=== PATIENT | male | born 1970 | race Caucasian/White ===

== ENCOUNTER 2019-10-16 13:11 | Emergency (ER) | payer MEDICARE, MEDICAID ==
[~2019-10-16] VITALS: Ht 172 cm; Wt 95.0 kg
[2019-10-16 13:33] VITALS: BP 126/77
[2019-10-16] MEDS ORDERED: POLY10DR OP (13:35)
--- NOTE | 2019-10-16 13:39 | ED EENT ---
History of Present Illness General Chief Complaint: Eye Problems Stated Complaint: LT EYE SWELLING Source: patient, caregiver Exam Limitations: no limitations History of Present Illness Date Seen by Provider: Oct 16, 2019 Time Seen by Provider: 13:30 Initial Comments Presents with left upper eyelid swelling onset today. NO trauma or injury. NO eye pain or discharge, NO visual change. No previous occurence of similar problem. Right eye uneffected Allergies and Home Medications Home Medications Polymyxin B Sulf/Trimethoprim 10 Ml Drops, 10 ML OP Q4H Prescribed by: CATHERINE CHRISTIANSON on 10/16/19 1335 Patient Home Medication List Home Medication List Reviewed: Yes Review of Systems Review of Systems Constitutional: no symptoms reported Eyes: See HPI; Denies Blindness, Denies Drainage, Denies Decreased Acuity, Denies Foreign Body Sensation, Denies Pain, Denies Photophobia, Denies Previous Injury, Denies Shadows; Other (swelling eyelid) Ears: No Symptoms Reported Nose: no symptoms reported Mouth: no symptoms reported Throat: no symptoms reported Skin: see HPI; No change in color, No lesions, No rash Neurological: Denies Headache, Denies Numbness, Denies Paresthesia, Denies Weakness Past Mpsfvgq-Dafqfr-Vpjbcr Hx Past Med/Social Hx: Reviewed Nursing Past Med/Soc Hx Patient Social History Alcohol Use: Denies Use Recreational Drug Use: No Smoking Status: Current Everyday Smoker Type Used: Cigarettes, Smokeless Tobacco 2nd Hand Smoke Exposure: No Recent Foreign Travel: No Contact w/Someone Who Travel: No Recent Hopitalizations: No Physical Abuse: No Sexual Abuse: No Mistreated: No Fear: No Seasonal Allergies Seasonal Allergies: Yes Past Medical History Surgeries: No Respiratory: Yes Asthma Cardiac: Yes Hypertension Neurological: Yes Developmental Disorder, Seizure Disorder Genitourinary: No Gastrointestinal: Yes Gastroesophageal Reflux Musculoskeletal: No Endocrine: Yes Diabetes, Insulin dep Eye Injury Cancer: No Psychosocial: Yes Anxiety, Bipolar, Schizophrenia Integumentary: No Physical Exam Vital Signs Vital Signs - First Documented 10/16/19 13:33 Temp 36.2 Pulse 95 Resp 18 B/P (MAP) 126/77 (93) Pulse Ox 95 O2 Delivery Room Air Height, Weight, BMI Height: '" Weight: lbs. oz. kg; BMI Method: General Appearance: WD/WN, no apparent distress Eyes: bilateral eye PERRL, bilateral eye EOMI Ears: bilateral ear auricle normal, bilateral ear canal normal Nose: normal inspection Mouth/Throat: normal mouth inspection Neck: non-tender, supple; No lymphadenopathy (R), No lymphadenopathy (L) edema left upper eyelid w more fullness lateral upper lid. No apparent stye. No conjunctival injection or FB. Progress/Results/Core Measures Results/Orders Vital Signs/I&O 10/16/19 13:33 Temp 36.2 Pulse 95 Resp 18 B/P (MAP) 126/77 (93) Pulse Ox 95 O2 Delivery Room Air Departure Impression Primary Impression: Chalazion of left upper eyelid Disposition: HOME, SELF-CARE Condition: Stable Departure-Patient Inst. Decision time for Depature: 13:33 Referrals: ROGE GARCIA MD (PCP/Family) Primary Care Physician Patient Instructions: Chalazion Add. Discharge Instructions: see your PCP or Eye Doctor in 1 wk if not improving, sooner if significantly worse. All discharge instructions reviewed with patient and/or family. Voiced understanding. Scripts Polymyxin B Sulf/Trimethoprim (Polytrim Eye Drops) 10 Ml Drops 10 ML OP Q4H, #1 VIAL Prov: CATHERINE CHRISTIANSON DO 10/16/19 CATHERINE CHRISTIANSON DO Oct 16, 2019 13:39
--- OUTSIDE RECORDS SUMMARY | 2019-10-16 14:32 | XMS REPORT | Clinical Summary ---
Author Author Admin, Tenzin CABRERA Organization [facility] Address Unknown Phone Unavailable Allergies, Adverse Reactions, Alerts Allergy Name Reaction Description Start Date Severity Status Pr ovider No Known Allergies Prosper Stevens LPN Conditions or Problems Problem Name Problem Code Onset Date Status Entry Date Provider Comment Standard Description Annotate BMI 31-31.9 Active Archana Henderson APRN Body Mass Index 31.0-31.9, adult Obesity Class I (BMI 30-34.9) Active 08/26 Archana Henderson APRN Obesity, unspecified Noncompliance with dietary regimen V15.81 Active 2 Archana Henderson APRN Personal history of noncompl iance with medical treatment, presenting hazards to health Diabetes mellitus, type II with hyperglycemia 250.00 Active Archana Henderson APRN Diabetes mellitus without mention of complication, type II or unspecified type, not stated as 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 ALBUTEROL SULFATE 70701827866 Active Jazmin hagen LPN Active TRIAMCINOLONE ACETONIDE 0.1 % EXTERNAL CREAM Take/use as needed. 20 19/08/26 TRIAMCINOLONE ACETONIDE 83260824739 Active Jazmin Stevens LPN Active EQL MILK OF MAGNESIA SUSPENSION Take/use as needed. MAGNESIUM HYDROXIDE SUSP 65670037177 Active Jazmin Stevens LPN Activ e ALAVERT 10 MG ORAL TABLET DISINTEGRATING Take one by mouth daily prn LORATADINE 35597910431 Active Jazmin Stevens LPN Act raymond IBU 600 MG ORAL TABLET 1 tab three times daily as needed mild pain IBUPROFEN 08746608915 Active Jazmin Stevens LPN Active [facility] TUSSIN DM 10-100 MG/5ML ORAL LIQUID 2 tsp every 6 hrs prn co ugh DEXTROMETHORPHAN-GUAIFENESIN 13150531330 Active Jazmin Stevens LPN Active GLUCAGON EMERGENCY 1 MG INJECTION KIT as directed for severe hypoglycemia GLUCAGON (RDNA) 07240718805 Active Jazmin Stevens LPN Active [facility] EAR DROPS 6.5 % OTIC SOLUTION 5 drops both ears for wax build up prn CARBAMIDE PEROXIDE 68421653693 Active Jazmin Walter PN Active MYLANTA MAXIMUM STRENGTH SUSPENSION Take/use as needed. ALUM & MAG HYDROXIDE-SIMETH SUSP 85669539308 Active Jazmin Stevens LPN Active ACETAMINOPHEN 325 MG ORAL TABLET Take/use as needed. ACETAMINOPHEN 86714149811 Active Jazmin Stevens LPN Active THEREMS-M ORAL TABLET Take one by mouth daily MULTIPLE VITAMINS-MINERALS 10867784436 Active Jazmin Stevens LPN Ac tive QUETIAPINE FUMARATE 50 MG ORAL TABLET 2 every am and 1 tab at noon for bipolar disorder QUETIAPINE FUMARATE 61250783307 Active Siri Stevens LPN Active K-TAB 10 MEQ ORAL TABLET EXTENDED RELEASE one tab every other day 2 POTASSIUM CHLORIDE 66561846145 Active Jazmin Stevens LPN A ctive PROTONIX 40 MG ORAL TABLET DELAYED RELEASE Take one by mouth daily PANTOPRAZOLE SODIUM 88674495824 Active Jazmin Stevens LPN Active OLANZAPINE 20 MG ORAL TABLET Take one by mouth daily OLANZAPINE 47172344135 Active Jazmin Stevens LPN Active OLANZAPINE 10 MG ORAL TABLET take with 20mg tab to equal 30m g per day OLANZAPINE 75136847047 Active Jazmin Rodney WISE Active OCUVITE-LUTEIN ORAL TABLET Take one by mouth daily MULTIPLE VITAMINS-MINERALS 28710116745 Active Jazmin Casillasjayson WISE Ac tive STARLIX 120 MG ORAL TABLET three times daily before meals 7 NATEGLINIDE 67769569849 Active Jazmin Stevens LPN Active LOPRESSOR 50 MG ORAL TABLET Take one by mouth daily METOPROLOL TARTRATE 42912627875 Active Jazmin Rodney WISE Active METFORMIN HCL 1000 MG ORAL TABLET by mouth twice a day METFORMIN HCL 99304389147 Active Jazmin Rodney WISE Active LOSARTAN POTASSIUM 100 MG ORAL TABLET Take one by mouth daily 08/26 LOSARTAN POTASSIUM 21064693205 Active Jazmni Rodney WISE A ctive LITHIUM CARBONATE 300 MG ORAL CAPSULE by mouth twice a day LITHIUM CARBONATE 14035273565 Active Jazmin Stevens LPN Active FUROSEMIDE 20 MG ORAL TABLET one tab by mouth every other day 2019 FUROSEMIDE 19294770729 Active Jazmin Rodney WISE Active FLONASE SENSIMIST 27.5 MCG/SPRAY NASAL SUSPENSION two sprays ea nostril once daily FLUTICASONE FUROATE 92369905006 Active Jazmin Rodney WISE Active COLACE 100 MG ORAL CAPSULE Take one by mouth daily DOCUSATE SODIUM 84764710017 Active Jazmin Stevens LPN Active BUSPIRONE HCL 10 MG ORAL TABLET Take one by mouth 3 ti mes daily, morning, afternoon and evening BUSPIRONE HCL 71389046613 Active Jazmin Rodney WISE Active ABILIFY 20 MG ORAL TABLET Take one by mouth daily ARIPIPRAZOLE 90235678923 Active Jazmin Stevens LPN Active NORVASC 5 MG ORAL TABLET Take one by mouth daily AMLODIPINE BESYLATE 54082764489 Active Jazmin Rodney WISE Active Vital Signs Date Name Value Unit Range Description blood pressure, diastolic, repeated by physician 78 BP lind blood pressure, diastolic 78 mm[Hg] BP lind blood pressure, systolic, repeated by physician 130 BP sys blood pressure, systolic 130 mm[Hg] BP sys height E&M 68 [in_us] Bdy height pulse rate 90 /min Heart rate weight E&M 208 [lb_av] Weight Measure d Diagnostic Results Date Name Value Unit Range Description Chart Maintenance: outside lab added to flowsheet - Chemistry hemoglobin A1C, blood, as % of total hemoglobin 8.1 % blood glucose 291 mg/dL creatinine, serum 0.84 mg/dL cholesterol, serum 180 mg/dL LDL cholesterol, serum 94 mg/dL HDL cholesterol, serum 69 mg/dL triglyceride, serum, fasting 79 mg/dL Encounters Code Encounter Date Provider Facility [id number] Vst-New Level IV 17:35:56 C FRANK Henderson LOAD OUT WORKER [facility]
--- OUTSIDE RECORDS SUMMARY | 2019-10-16 14:32 | XMS REPORT | Clinical Summary ---
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 Body Mass Index 31.0-31.9, adult Obesity Class I (BMI 30-34.9) Active 08/26 Archana Beatriz 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 Obesity, unspecified Noncompliance with dietary regimen V15.81 Active 2 Archana Harrison 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 Personal history of noncompl iance with medical treatment, presenting hazards to health Diabetes mellitus, type II with hyperglycemia 250.00 Active Archana Harrison 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 Diabetes mellitus without mention of complication, type II or unspecified type, not stated as uncontrolled jail use of insulin treatment V58.67 Active 2 Archana Harrison 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 Long-term (current) use of insulin Type 2 diabetes mellitus with other specified complication 250.8 0 Active Archana Harrison 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 Diabetes mellitus with other specified manifestations, type II or unspecified type, not stated as uncontrolled Medication List Medication Instructions Start Date Stop Date Generic Name NDC Status Provider Patient Instruction NOVOLOG FLEXPEN 100 UNIT/ML SUBCUTANEOUS SOLUTION PEN- INJECTOR 5units SC with each meal, TID for diabetes INSULIN ASPART 55368869139 Act raymond Archana Harrison 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 Active SOLIQUA 100-33 UNT-MCG/ML SUBCUTANEOUS SOLUTION PEN-IN JECTOR Increase now to 26units daily and then 6-15-20 please increase to 30 units INSULIN GLARGINE-LIXISENATIDE 07359048716 Active Archana Henderson 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 Active STARLIX 120 MG ORAL TABLET three times daily before meals 7 NATEGLINIDE 16810755361 No Longer Active Archana Henderson 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 A ctive VENTOLIN HFA 108 (90 BASE) MCG/ACT INHALATION AEROSOL SOLUTION Take/use as needed. ALBUTEROL SULFATE 12220694170 Active Jazmin hagen LPN Active TRIAMCINOLONE ACETONIDE 0.1 % EXTERNAL CREAM Take/use as needed. 20 19/08/26 TRIAMCINOLONE ACETONIDE 01354253173 Active Jazmin Stevens LPN Active EQL MILK OF MAGNESIA SUSPENSION Take/use as needed. MAGNESIUM HYDROXIDE SUSP 70366925901 Active Jazmin Stevens LPN Activ e ALAVERT 10 MG ORAL TABLET DISINTEGRATING Take one by mouth daily prn LORATADINE 59695191708 Active Jazmin Stevens LPN Act raymond IBU 600 MG ORAL TABLET 1 tab three times daily as needed mild pain IBUPROFEN 33232546629 Active Jazmin Stevens LPN Active [facility] TUSSIN DM 10-100 MG/5ML ORAL LIQUID 2 tsp every 6 hrs prn co ugh DEXTROMETHORPHAN-GUAIFENESIN 27992268040 Active Jazmin Stevens LPN Active GLUCAGON EMERGENCY 1 MG INJECTION KIT as directed for severe hypoglycemia GLUCAGON (RDNA) 22972833035 Active Jazmin Stevens LPN Active [facility] EAR DROPS 6.5 % OTIC SOLUTION 5 drops both ears for wax build up prn CARBAMIDE PEROXIDE 37565400873 Active Jazmin Walter PN Active MYLANTA MAXIMUM STRENGTH SUSPENSION Take/use as needed. ALUM & MAG HYDROXIDE-SIMETH SUSP 82198398582 Active Jazmin Stevens LPN Active ACETAMINOPHEN 325 MG ORAL TABLET Take/use as needed. ACETAMINOPHEN 09458559126 Active Jazmin Stevens LPN Active THEREMS-M ORAL TABLET Take one by mouth daily MULTIPLE VITAMINS-MINERALS 73320208594 Active Jazmin Stevens LPN Ac tive QUETIAPINE FUMARATE 50 MG ORAL TABLET 2 every am and 1 tab at noon for bipolar disorder QUETIAPINE FUMARATE 44426695123 Active Siri ryjanell Stevens LPN Active K-TAB 10 MEQ ORAL TABLET EXTENDED RELEASE one tab every other day 2 POTASSIUM CHLORIDE 87750928816 Active Jazmin Stevens LPN A ctive PROTONIX 40 MG ORAL TABLET DELAYED RELEASE Take one by mouth daily PANTOPRAZOLE SODIUM 39967004583 Active Jazmin Stevens LPN Active OLANZAPINE 20 MG ORAL TABLET Take one by mouth daily OLANZAPINE 29950346979 Active Jazmin Stevens LPN Active OLANZAPINE 10 MG ORAL TABLET take with 20mg tab to equal 30m g per day OLANZAPINE 26911304430 Active Jazmin Stevens LPN Active OCUVITE-LUTEIN ORAL TABLET Take one by mouth daily MULTIPLE VITAMINS-MINERALS 25686263797 Active Jazmin Stevens LPN Ac tive LOPRESSOR 50 MG ORAL TABLET Take one by mouth daily METOPROLOL TARTRATE 68625208404 Active Jazmin Stevens LPN Active METFORMIN HCL 1000 MG ORAL TABLET by mouth twice a day METFORMIN HCL 06790622776 Active Jazmin Stevens LPN Active LOSARTAN POTASSIUM 100 MG ORAL TABLET Take one by mouth daily 08/26 LOSARTAN POTASSIUM 48809997499 Active Jazmin Stevens LPN A ctive LITHIUM CARBONATE 300 MG ORAL CAPSULE by mouth twice a day LITHIUM CARBONATE 96348601680 Active Jazmin Stevens LPN Active FUROSEMIDE 20 MG ORAL TABLET one tab by mouth every other day 2019 FUROSEMIDE 20504774992 Active Jazmin Stevens LPN Active FLONASE SENSIMIST 27.5 MCG/SPRAY NASAL SUSPENSION two sprays ea nostril once daily FLUTICASONE FUROATE 89117706820 Active Jazmin Stevens LPN Active COLACE 100 MG ORAL CAPSULE Take one by mouth daily DOCUSATE SODIUM 69013433005 Active Jazmin Stevens LPN Active BUSPIRONE HCL 10 MG ORAL TABLET Take one by mouth 3 ti mes daily, morning, afternoon and evening BUSPIRONE HCL 98551939551 Active Jazmin Stevens LPN Active ABILIFY 20 MG ORAL TABLET Take one by mouth daily ARIPIPRAZOLE 26732625929 Active Jazmin Stevens LPN Active NORVASC 5 MG ORAL TABLET Take one by mouth daily AMLODIPINE BESYLATE 31022673322 Active Jazmin Stevens LPN Active STARLIX 120 MG ORAL TABLET three times daily before meals 7 STARLIX 120 MG ORAL TABLET 746660 NATEGLINIDE Inactive Vital Signs Date Name Value Unit Range Description blood pressure, diastolic, repeated by physician 78 BP lind blood pressure, diastolic 78 mm[Hg] BP lind blood pressure, systolic, repeated by physician 138 BP sys blood pressure, systolic 138 mm[Hg] BP sys height E&M 68 [in_us] Bdy height pulse rate 100 /min Heart rate weight E&M 210 [lb_av] Weight Measure d blood pressure, diastolic, repeated by physician 78 [...] mg/dL Encounters Code Encounter Date Provider Facility [id number]-[id number] Vst-Est Level V 23:31:00 CD T Archana Henderson [facility] [id number] Vst-New Level IV 17:35:56 C FRANK Henderson [facility]
--- OUTSIDE RECORDS SUMMARY | 2019-10-16 14:32 | XMS REPORT | Clinical Summary ---
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 Problem Name Problem Code Onset Date Status Entry Date Provider Comment Standard Description Annotate BMI 31-31.9 Refinement Archana [place] A PRN Body Mass Index 31.0-31.9, adult BMI 32-32.9 Active Archana [place] MUSIC INTERN Body Mass Index 31.0-31.9, adult Obesity Class I (BMI 30-34.9) Active 08/26 Archana Beatriz MUSIC INTERN Obesity, unspecified Noncompliance with dietary regimen V15.81 Active 2 Archana [place] MUSIC INTERN Personal history of noncompl iance with medical treatment, presenting hazards to health Diabetes mellitus, type II with hyperglycemia 250.00 Active Archana [place] MUSIC INTERN Diabetes mellitus without mention of complication, type II or unspecified type, not stated as uncontrolled prison use of insulin treatment V58.67 Active 2 Archana [place] MUSIC INTERN Long-term (current) use of insulin Type 2 diabetes mellitus with other specified complication 250.8 0 Active Archana [place] MUSIC INTERN Diabetes mellitus with other specified manifestations, type II or unspecified type, not stated as uncontrolled Medication List Medication Instructions Start Date Stop Date Generic Name NDC Status Provider Patient Instruction NOVOLOG FLEXPEN 100 UNIT/ML SUBCUTANEOUS SOLUTION PEN- INJECTOR 5units SC with each meal, TID for diabetes INSULIN ASPART 49365318434 Act raymond Archana [place] MUSIC INTERN Active SOLIQUA 100-33 UNT-MCG/ML SUBCUTANEOUS SOLUTION PEN-IN JECTOR Increase now to 26units daily and then 6-15-20 please increase to 30 units INSULIN GLARGINE-LIXISENATIDE 57229224355 Active Archana Henderson MUSIC INTERN Active STARLIX 120 MG ORAL TABLET three times daily before meals 7 NATEGLINIDE 06159172644 No Longer Active Archana Henderson MUSIC INTERN A ctive VENTOLIN HFA 108 (90 BASE) MCG/ACT INHALATION AEROSOL SOLUTION Take/use as needed. ALBUTEROL SULFATE 87781492861 Active Jazmin hagen LPN Active TRIAMCINOLONE ACETONIDE 0.1 % EXTERNAL CREAM Take/use as needed. 20 19/08/26 TRIAMCINOLONE ACETONIDE 24206188577 Active Jazmin Stevens LPN Active EQL MILK OF MAGNESIA SUSPENSION Take/use as needed. MAGNESIUM HYDROXIDE SUSP 06445502505 Active Jazmin Stevens LPN Activ e ALAVERT 10 MG ORAL TABLET DISINTEGRATING Take one by mouth daily prn LORATADINE 57252098498 Active Jazmin Stevens LPN Act raymond IBU 600 MG ORAL TABLET 1 tab three times daily as needed mild pain IBUPROFEN 95212840292 Active Jazmin Stevens LPN Active [facility] TUSSIN DM 10-100 MG/5ML ORAL LIQUID 2 tsp every 6 hrs prn co ugh DEXTROMETHORPHAN-GUAIFENESIN 25249442443 Active Jazmin Stevens LPN Active GLUCAGON EMERGENCY 1 MG INJECTION KIT as directed for severe hypoglycemia GLUCAGON (RDNA) 35349073313 Active Jazmin Stevens LPN Active [facility] EAR DROPS 6.5 % OTIC SOLUTION 5 drops both ears for wax build up prn CARBAMIDE PEROXIDE 86132068141 Active Jazmin Walter PN Active MYLANTA MAXIMUM STRENGTH SUSPENSION Take/use as needed. ALUM & MAG HYDROXIDE-SIMETH SUSP 87816022880 Active Jazmin Stevens LPN Active ACETAMINOPHEN 325 MG ORAL TABLET Take/use as needed. ACETAMINOPHEN 22215186438 Active Jazmin Stevens LPN Active THEREMS-M ORAL TABLET Take one by mouth daily MULTIPLE VITAMINS-MINERALS 64862360094 Active Jazmin Stevens LPN Ac tive QUETIAPINE FUMARATE 50 MG ORAL TABLET 2 every am and 1 tab at noon for bipolar disorder QUETIAPINE FUMARATE 78727258729 Active Siri ryjanell Stevens LPN Active K-TAB 10 MEQ ORAL TABLET EXTENDED RELEASE one tab every other day 2 POTASSIUM CHLORIDE 25226647083 Active Jazmin Stevens LPN A ctive PROTONIX 40 MG ORAL TABLET DELAYED RELEASE Take one by mouth daily PANTOPRAZOLE SODIUM 72507332841 Active Jazmin Stevens LPN Active OLANZAPINE 20 MG ORAL TABLET Take one by mouth daily OLANZAPINE 19730882389 Active Jazmin Stevens LPN Active OLANZAPINE 10 MG ORAL TABLET take with 20mg tab to equal 30m g per day OLANZAPINE 29243576864 Active Jazmin Stevens LPN Active OCUVITE-LUTEIN ORAL TABLET Take one by mouth daily MULTIPLE VITAMINS-MINERALS 28329754440 Active Jazmin Stevens LPN Ac tive LOPRESSOR 50 MG ORAL TABLET Take one by mouth daily METOPROLOL TARTRATE 10917112235 Active Jazmin Stevens LPN Active METFORMIN HCL 1000 MG ORAL TABLET by mouth twice a day METFORMIN HCL 50287765363 Active Jazmin Stevens LPN Active LOSARTAN POTASSIUM 100 MG ORAL TABLET Take one by mouth daily 08/26 LOSARTAN POTASSIUM 10821344053 Active Jazmin Stevens LPN A ctive LITHIUM CARBONATE 300 MG ORAL CAPSULE by mouth twice a day LITHIUM CARBONATE 27768844724 Active Jazmin Stevens LPN Active FUROSEMIDE 20 MG ORAL TABLET one tab by mouth every other day 2019 FUROSEMIDE 12188675223 Active Jazmin Stevens LPN Active FLONASE SENSIMIST 27.5 MCG/SPRAY NASAL SUSPENSION two sprays ea nostril once daily FLUTICASONE FUROATE 82667017138 Active Jazmin Stevens LPN Active COLACE 100 MG ORAL CAPSULE Take one by mouth daily DOCUSATE SODIUM 79566366607 Active Jazmin Stevens LPN Active BUSPIRONE HCL 10 MG ORAL TABLET Take one by mouth 3 ti mes daily, morning, afternoon and evening BUSPIRONE HCL 53781093856 Active Jazmin Stevens LPN Active ABILIFY 20 MG ORAL TABLET Take one by mouth daily ARIPIPRAZOLE 98312109084 Active Jazmin Stevens LPN Active NORVASC 5 MG ORAL TABLET Take one by mouth daily AMLODIPINE BESYLATE 66239401758 Active Jazmin Stevens LPN Active STARLIX 120 MG ORAL TABLET three times daily before meals 7 STARLIX 120 MG ORAL TABLET 521821 NATEGLINIDE Inactive Vital Signs Date Name Value [...] mg/dL Encounters Code Encounter Date Provider Facility CPT-[id number] Vst-Est Level V 23:31:00 CD T Archana Henderson [facility] [id number] Vst-New Level IV 17:35:56 C FRANK Henderson [facility]
--- OUTSIDE RECORDS SUMMARY | 2019-10-16 14:32 | XMS REPORT | Clinical Summary ---
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 Conditions or Problems Problem Name Problem Code Onset Date Status Entry Date Provider Comment Standard Description Annotate BMI 31-31.9 Refinement Archana [place] A PRN Body Mass Index 31.0-31.9, adult BMI 32-32.9 Active Archana [place] PEDIATRIC NURSE PRACTITIONER Body Mass Index 31.0-31.9, adult Obesity Class I (BMI 30-34.9) Active 08/26 Archana Beatriz PEDIATRIC NURSE PRACTITIONER Obesity, unspecified Noncompliance with dietary regimen V15.81 Active 2 Archana [place] PEDIATRIC NURSE PRACTITIONER Personal history of noncompl iance with medical treatment, presenting hazards to health Diabetes mellitus, type II with hyperglycemia 250.00 Active Archana [place] PEDIATRIC NURSE PRACTITIONER Diabetes mellitus without mention of complication, type II or unspecified type, not stated as uncontrolled nursing home use of insulin treatment V58.67 Active 2 Archana [place] PEDIATRIC NURSE PRACTITIONER Long-term (current) use of insulin Type 2 diabetes mellitus with other specified complication 250.8 0 Active Archana [place] PEDIATRIC NURSE PRACTITIONER Diabetes mellitus with other specified manifestations, type II or unspecified type, not stated as uncontrolled Medication List Medication Instructions Start Date Stop Date Generic Name NDC Status Provider Patient Instruction NOVOLOG FLEXPEN 100 UNIT/ML SUBCUTANEOUS SOLUTION PEN- INJECTOR 5units SC with each meal, TID for diabetes INSULIN ASPART [id number] Act raymond Archana [place] PEDIATRIC NURSE PRACTITIONER Active SOLIQUA 100-33 UNT-MCG/ML SUBCUTANEOUS SOLUTION PEN-IN JECTOR Increase now to 26units daily and then 6-15-20 please increase to 30 units INSULIN GLARGINE-LIXISENATIDE 46862051924 Active Archana Henderson PEDIATRIC NURSE PRACTITIONER Active STARLIX 120 MG ORAL TABLET three times daily before meals 7 NATEGLINIDE 09351423576 No Longer Active Archana Henderson PEDIATRIC NURSE PRACTITIONER A ctive VENTOLIN HFA 108 (90 BASE) MCG/ACT INHALATION AEROSOL SOLUTION Take/use as needed. ALBUTEROL SULFATE 00409844091 Active Jazmin hagen LPN Active TRIAMCINOLONE ACETONIDE 0.1 % EXTERNAL CREAM Take/use as needed. 20 19/08/26 TRIAMCINOLONE ACETONIDE 97012093685 Active Jazmin Stevens LPN Active EQL MILK OF MAGNESIA SUSPENSION Take/use as needed. MAGNESIUM HYDROXIDE SUSP 33107109104 Active Jazmin Stevens LPN Activ e ALAVERT 10 MG ORAL TABLET DISINTEGRATING Take one by mouth daily prn LORATADINE 09564592502 Active Jazmin Stevens LPN Act raymond IBU 600 MG ORAL TABLET 1 tab three times daily as needed mild pain IBUPROFEN 76564675642 Active Jazmin Stevens LPN Active [facility] TUSSIN DM 10-100 MG/5ML ORAL LIQUID 2 tsp every 6 hrs prn co ugh DEXTROMETHORPHAN-GUAIFENESIN 25521608274 Active Jazmin Stevens LPN Active GLUCAGON EMERGENCY 1 MG INJECTION KIT as directed for severe hypoglycemia GLUCAGON (RDNA) 61635136842 Active Jazmin Stevens LPN Active [facility] EAR DROPS 6.5 % OTIC SOLUTION 5 drops both ears for wax build up prn CARBAMIDE PEROXIDE 06493475766 Active Jazmin Walter PN Active MYLANTA MAXIMUM STRENGTH SUSPENSION Take/use as needed. ALUM & MAG HYDROXIDE-SIMETH SUSP 19311700645 Active Jazmin Stevens LPN Active ACETAMINOPHEN 325 MG ORAL TABLET Take/use as needed. ACETAMINOPHEN 88881080569 Active Jazmin Stevens LPN Active THEREMS-M ORAL TABLET Take one by mouth daily MULTIPLE VITAMINS-MINERALS 27562335946 Active Jazmin Stevens LPN Ac tive QUETIAPINE FUMARATE 50 MG ORAL TABLET 2 every am and 1 tab at noon for bipolar disorder QUETIAPINE FUMARATE 29922622773 Active Siri ryjanell Stevens LPN Active K-TAB 10 MEQ ORAL TABLET EXTENDED RELEASE one tab every other day 2 POTASSIUM CHLORIDE 89786497188 Active Jazmin Stevens LPN A ctive PROTONIX 40 MG ORAL TABLET DELAYED RELEASE Take one by mouth daily PANTOPRAZOLE SODIUM 08214480309 Active Jazmin Stevens LPN Active OLANZAPINE 20 MG ORAL TABLET Take one by mouth daily OLANZAPINE 90884807253 Active Jazmin Stevens LPN Active OLANZAPINE 10 MG ORAL TABLET take with 20mg tab to equal 30m g per day OLANZAPINE 76872339920 Active Jazmin Stevens LPN Active OCUVITE-LUTEIN ORAL TABLET Take one by mouth daily MULTIPLE VITAMINS-MINERALS 82669410089 Active Jazmin Stevens LPN Ac tive LOPRESSOR 50 MG ORAL TABLET Take one by mouth daily METOPROLOL TARTRATE 64348999895 Active Jazmin Stevens LPN Active METFORMIN HCL 1000 MG ORAL TABLET by mouth twice a day METFORMIN HCL 18259069391 Active Jazmin Stevens LPN Active LOSARTAN POTASSIUM 100 MG ORAL TABLET Take one by mouth daily 08/26 [place] POTASSIUM 59528763501 Active Jazmin Stevens LPN A ctive LITHIUM CARBONATE 300 MG ORAL CAPSULE by mouth twice a day LITHIUM CARBONATE 23065019289 Active Jazmin Stevens LPN Active FUROSEMIDE 20 MG ORAL TABLET one tab by mouth every other day 2019 FUROSEMIDE 99595256079 Active Jazmin Stevens LPN Active FLONASE SENSIMIST 27.5 MCG/SPRAY NASAL SUSPENSION two sprays ea nostril once daily FLUTICASONE FUROATE 34664100348 Active Jazmin Stevens LPN Active COLACE 100 MG ORAL CAPSULE Take one by mouth daily DOCUSATE SODIUM 82069287218 Active Jazmin Stevens LPN Active BUSPIRONE HCL 10 MG ORAL TABLET Take one by mouth 3 ti mes daily, morning, afternoon and evening BUSPIRONE HCL 99901325158 Active Jazmin Stevens LPN Active ABILIFY 20 MG ORAL TABLET Take one by mouth daily ARIPIPRAZOLE 97039712414 Active Jazmin Stevens LPN Active NORVASC 5 MG ORAL TABLET Take one by mouth daily AMLODIPINE BESYLATE 55282158726 Active Jazmin Stevens LPN Active STARLIX 120 MG ORAL TABLET three times daily before meals 7 STARLIX 120 MG ORAL TABLET 797111 NATEGLINIDE Inactive Vital Signs Date Name Value [...] mg/dL Encounters Code Encounter Date Provider Facility [id number]-[id number] Vst-Est Level V 23:31:00 CD T Archana Henderson [facility]-[id number] [id number]-Kfv Vst-New Level IV 17:35:56 C FRANK Henderson [facility]
--- OUTSIDE RECORDS SUMMARY | 2019-10-16 14:32 | XMS REPORT | Clinical Summary ---
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 INSULIN GLARGINE -LIXISENATIDE 84097564632 Active Archana Henderson MARKETING BUDGET ANALYST Active VENTOLIN HFA 108 (90 BASE) MCG/ACT INHALATION AEROSOL SOLUTION Take/use as needed. ALBUTEROL SULFATE 46271908126 Active Jazmin hagen LPN Active TRIAMCINOLONE ACETONIDE 0.1 % EXTERNAL CREAM Take/use as needed. 20 19/08/26 TRIAMCINOLONE ACETONIDE 97222479976 Active Jazmin Stevens LPN Active EQL MILK OF MAGNESIA SUSPENSION Take/use as needed. MAGNESIUM HYDROXIDE SUSP 24378339526 Active Jazmin Stevens LPN Activ e ALAVERT 10 MG ORAL TABLET DISINTEGRATING Take one by mouth daily prn LORATADINE 25819485791 Active Jazmin Stevens LPN Act raymond IBU 600 MG ORAL TABLET 1 tab three times daily as needed mild pain IBUPROFEN 37772558269 Active Jazmin Stevens LPN Active [facility] TUSSIN DM 10-100 MG/5ML ORAL LIQUID 2 tsp every 6 hrs prn co ugh DEXTROMETHORPHAN-GUAIFENESIN 14635755281 Active Jazmin Stevens LPN Active GLUCAGON EMERGENCY 1 MG INJECTION KIT as directed for severe hypoglycemia GLUCAGON (RDNA) 52349232854 Active Jazmin Stevens LPN Active [facility] EAR DROPS 6.5 % OTIC SOLUTION 5 drops both ears for wax build up prn CARBAMIDE PEROXIDE 99549277091 Active Jazmin Walter PN Active MYLANTA MAXIMUM STRENGTH SUSPENSION Take/use as needed. ALUM & MAG HYDROXIDE-SIMETH SUSP 38403397384 Active Jazmin Stevens LPN Active ACETAMINOPHEN 325 MG ORAL TABLET Take/use as needed. ACETAMINOPHEN 27860729381 Active Jazmin Stevens LPN Active THEREMS-M ORAL TABLET Take one by mouth daily MULTIPLE VITAMINS-MINERALS 40591210450 Active Jazmin Stevens LPN Ac tive QUETIAPINE FUMARATE 50 MG ORAL TABLET 2 every am and 1 tab at noon for bipolar disorder QUETIAPINE FUMARATE 90662092368 Active Siri Stevens LPN Active K-TAB 10 MEQ ORAL TABLET EXTENDED RELEASE one tab every other day 2 POTASSIUM CHLORIDE 88063589378 Active Jazmin Stevens LPN A ctive PROTONIX 40 MG ORAL TABLET DELAYED RELEASE Take one by mouth daily PANTOPRAZOLE SODIUM 10832328142 Active Jazmin Stevens LPN Active OLANZAPINE 20 MG ORAL TABLET Take one by mouth daily OLANZAPINE 19440661435 Active Jazmin Stevens LPN Active OLANZAPINE 10 MG ORAL TABLET take with 20mg tab to equal 30m g per day OLANZAPINE 16569322262 Active Jazmin Rodney WISE Active OCUVITE-LUTEIN ORAL TABLET Take one by mouth daily MULTIPLE VITAMINS-MINERALS 74808710255 Active Jazmin [place] WISE Ac tive STARLIX 120 MG ORAL TABLET three times daily before meals 7 NATEGLINIDE 55732053843 Active Jazmin Stevens LPN Active LOPRESSOR 50 MG ORAL TABLET Take one by mouth daily METOPROLOL TARTRATE 58332254151 Active Jazmin Rodney WISE Active METFORMIN HCL 1000 MG ORAL TABLET by mouth twice a day METFORMIN HCL 64649278580 Active Jazmin Rodney WISE Active LOSARTAN POTASSIUM 100 MG ORAL TABLET Take one by mouth daily 08/26 [place] POTASSIUM 04405685763 Active Jazmin Rodney WISE A ctive LITHIUM CARBONATE 300 MG ORAL CAPSULE by mouth twice a day LITHIUM CARBONATE 73903021474 Active Jazmin Stevens LPN Active FUROSEMIDE 20 MG ORAL TABLET one tab by mouth every other day 2019 FUROSEMIDE 48924046870 Active Jazmin Rodney WISE Active FLONASE SENSIMIST 27.5 MCG/SPRAY NASAL SUSPENSION two sprays ea nostril once daily FLUTICASONE FUROATE 36660869924 Active Jazmin Rodney WISE Active COLACE 100 MG ORAL CAPSULE Take one by mouth daily DOCUSATE SODIUM 30106167776 Active Jazmin Stevens LPN Active BUSPIRONE HCL 10 MG ORAL TABLET Take one by mouth 3 ti mes daily, morning, afternoon and evening BUSPIRONE HCL 55696331262 Active Jazmin Rodney WISE Active ABILIFY 20 MG ORAL TABLET Take one by mouth daily ARIPIPRAZOLE 65279339535 Active Jazmin Stevens LPN Active NORVASC 5 MG ORAL TABLET Take one by mouth daily AMLODIPINE BESYLATE 83266517036 Active Jazmin Rodney WISE Active Vital Signs [...] mg/dL Encounters Code Encounter Date Provider Facility CPT-[id number] [id number] Vst-New Level IV 17:35:56 C FRANK Henderson MARKETING BUDGET ANALYST [facility]
--- OUTSIDE RECORDS SUMMARY | 2019-10-16 14:32 | XMS REPORT | Clinical Summary ---
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 Body Mass Index 31.0-31.9, adult Obesity Class I (BMI 30-34.9) Active 08/26 Archana Beatriz GLASS SCIENCE ENGINEER Obesity, unspecified Noncompliance with dietary regimen V15.81 Active 2 Archana [place] GLASS SCIENCE ENGINEER Personal history of noncompl iance with medical treatment, presenting hazards to health Diabetes mellitus, type II with hyperglycemia 250.00 Active Archana [place] GLASS SCIENCE ENGINEER Diabetes mellitus without mention of complication, type II or unspecified type, not stated as uncontrolled [facility] use of insulin treatment V58.67 Active 2 Archana [place] GLASS SCIENCE ENGINEER Long-term (current) use of insulin Type 2 diabetes mellitus with other specified complication 250.8 0 Active Archana [place] GLASS SCIENCE ENGINEER Diabetes mellitus with other specified manifestations, type II or unspecified type, not stated as uncontrolled Medication List Medication Instructions Start Date Stop Date Generic Name NDC Status Provider Patient Instruction NOVOLOG FLEXPEN 100 UNIT/ML SUBCUTANEOUS SOLUTION PEN- INJECTOR 5units SC with each meal, TID for diabetes INSULIN ASPART 81441035187 Act raymond Archana [place] GLASS SCIENCE ENGINEER Active SOLIQUA 100-33 UNT-MCG/ML SUBCUTANEOUS SOLUTION PEN-IN JECTOR Increase now to 26units daily and then 6-15-20 please increase to 30 units INSULIN GLARGINE-LIXISENATIDE 43241315362 Active Archana Henderson GLASS SCIENCE ENGINEER Active STARLIX 120 MG ORAL TABLET three times daily before meals 7 NATEGLINIDE 60460037613 No Longer Active Archana Henderson GLASS SCIENCE ENGINEER A ctive VENTOLIN HFA 108 (90 BASE) MCG/ACT INHALATION AEROSOL SOLUTION Take/use as needed. ALBUTEROL SULFATE 43993457976 Active Jazmin hagen LPN Active TRIAMCINOLONE ACETONIDE 0.1 % EXTERNAL CREAM Take/use as needed. 20 19/08/26 TRIAMCINOLONE ACETONIDE 02517590872 Active Jazmin Stevens LPN Active EQL MILK OF MAGNESIA SUSPENSION Take/use as needed. MAGNESIUM HYDROXIDE SUSP 24788617983 Active Jazmin Stevens LPN Activ e ALAVERT 10 MG ORAL TABLET DISINTEGRATING Take one by mouth daily prn LORATADINE 69415634169 Active Jazmin Stevens LPN Act raymond IBU 600 MG ORAL TABLET 1 tab three times daily as needed mild pain IBUPROFEN 99677397860 Active Jazmin Stevens LPN Active [facility] TUSSIN DM 10-100 MG/5ML ORAL LIQUID 2 tsp every 6 hrs prn co ugh DEXTROMETHORPHAN-GUAIFENESIN 41856262206 Active Jazmin Stevens LPN Active GLUCAGON EMERGENCY 1 MG INJECTION KIT as directed for severe hypoglycemia GLUCAGON (RDNA) 75061915621 Active Jazmin Stevens LPN Active [facility] EAR DROPS 6.5 % OTIC SOLUTION 5 drops both ears for wax build up prn CARBAMIDE PEROXIDE 85247619597 Active Jazmin Walter PN Active MYLANTA MAXIMUM STRENGTH SUSPENSION Take/use as needed. ALUM & MAG HYDROXIDE-SIMETH SUSP 66373171026 Active Jazmin Stevens LPN Active ACETAMINOPHEN 325 MG ORAL TABLET Take/use as needed. ACETAMINOPHEN 48087974526 Active Jazmin Stevens LPN Active THEREMS-M ORAL TABLET Take one by mouth daily MULTIPLE VITAMINS-MINERALS 41858841299 Active Jazmin Stevens LPN Ac tive QUETIAPINE FUMARATE 50 MG ORAL TABLET 2 every am and 1 tab at noon for bipolar disorder QUETIAPINE FUMARATE 83291971004 Active Siri ryjanell Stevens LPN Active K-TAB 10 MEQ ORAL TABLET EXTENDED RELEASE one tab every other day 2 POTASSIUM CHLORIDE 82938134904 Active Jazmin Stevens LPN A ctive PROTONIX 40 MG ORAL TABLET DELAYED RELEASE Take one by mouth daily PANTOPRAZOLE SODIUM 48739394776 Active Jazmin Stevens LPN Active OLANZAPINE 20 MG ORAL TABLET Take one by mouth daily OLANZAPINE 72050649211 Active Jazmin Stevens LPN Active OLANZAPINE 10 MG ORAL TABLET take with 20mg tab to equal 30m g per day OLANZAPINE 12670683497 Active Jazmin Stevens LPN Active OCUVITE-LUTEIN ORAL TABLET Take one by mouth daily MULTIPLE VITAMINS-MINERALS 86181442020 Active Jazmin Stevens LPN Ac tive LOPRESSOR 50 MG ORAL TABLET Take one by mouth daily METOPROLOL TARTRATE 22530921928 Active Jazmin Stevens LPN Active METFORMIN HCL 1000 MG ORAL TABLET by mouth twice a day METFORMIN HCL 36695597319 Active Jazmin Stevens LPN Active LOSARTAN POTASSIUM 100 MG ORAL TABLET Take one by mouth daily 08/26 [place] POTASSIUM 74198694237 Active Jazmin Stevens LPN A ctive LITHIUM CARBONATE 300 MG ORAL CAPSULE by mouth twice a day LITHIUM CARBONATE 97858798568 Active Jazmin Stevens LPN Active FUROSEMIDE 20 MG ORAL TABLET one tab by mouth every other day 2019 FUROSEMIDE 10308658602 Active Jazmin Stevens LPN Active FLONASE SENSIMIST 27.5 MCG/SPRAY NASAL SUSPENSION two sprays ea nostril once daily FLUTICASONE FUROATE 63292479222 Active Jazmin Stevens LPN Active COLACE 100 MG ORAL CAPSULE Take one by mouth daily DOCUSATE SODIUM 72451127130 Active Jazmin Stevens LPN Active BUSPIRONE HCL 10 MG ORAL TABLET Take one by mouth 3 ti mes daily, morning, afternoon and evening BUSPIRONE HCL 54023482982 Active Jazmin Stevens LPN Active ABILIFY 20 MG ORAL TABLET Take one by mouth daily ARIPIPRAZOLE 24665369322 Active Jazmin Stevens LPN Active NORVASC 5 MG ORAL TABLET Take one by mouth daily AMLODIPINE BESYLATE 45868807973 Active Jazmin Stevens LPN Active STARLIX 120 MG ORAL TABLET three times daily before meals 7 STARLIX 120 MG ORAL TABLET 027012 NATEGLINIDE Inactive Vital Signs Date Name Value [...] mg/dL Encounters Code Encounter Date Provider Facility CPT-50219 [id number] Vst-Est Level V 23:31:00 CD T Archana [facility] [id number] Vst-New Level IV 17:35:56 C FRANK Henderson [facility]
--- OUTSIDE RECORDS SUMMARY | 2019-10-16 14:32 | XMS REPORT | Clinical Summary ---
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 Body Mass Index 31.0-31.9, adult Obesity Class I (BMI 30-34.9) Active 08/26 Archana Beatriz CNC GRINDER Obesity, unspecified Noncompliance with dietary regimen V15.81 Active 2 Archana [place] CNC GRINDER Personal history of noncompl iance with medical treatment, presenting hazards to health Diabetes mellitus, type II with hyperglycemia 250.00 Active Archana [place] CNC GRINDER Diabetes mellitus without mention of complication, type II or unspecified type, not stated as uncontrolled [facility] use of insulin treatment V58.67 Active 2 Archana [place] CNC GRINDER Long-term (current) use of insulin Type 2 diabetes mellitus with other specified complication 250.8 0 Active Archana [place] CNC GRINDER Diabetes mellitus with other specified manifestations, type II or unspecified type, not stated as uncontrolled Medication List Medication Instructions Start Date Stop Date Generic Name NDC Status Provider Patient Instruction NOVOLOG FLEXPEN 100 UNIT/ML SUBCUTANEOUS SOLUTION PEN- INJECTOR 5units SC with each meal, TID for diabetes INSULIN ASPART 47440893478 Act raymond Archana [place] CNC GRINDER Active SOLIQUA 100-33 UNT-MCG/ML SUBCUTANEOUS SOLUTION PEN-IN JECTOR Increase now to 26units daily and then 6-15-20 please increase to 30 units INSULIN GLARGINE-LIXISENATIDE 41490589114 Active Archana Henderson CNC GRINDER Active STARLIX 120 MG ORAL TABLET three times daily before meals 7 NATEGLINIDE 72716492965 No Longer Active Archana Henderson CNC GRINDER A ctive VENTOLIN HFA 108 (90 BASE) MCG/ACT INHALATION AEROSOL SOLUTION Take/use as needed. ALBUTEROL SULFATE 49317343737 Active Jazmin hagen LPN Active TRIAMCINOLONE ACETONIDE 0.1 % EXTERNAL CREAM Take/use as needed. 20 19/08/26 TRIAMCINOLONE ACETONIDE 20210794436 Active Jzamin Stevens LPN Active EQL MILK OF MAGNESIA SUSPENSION Take/use as needed. MAGNESIUM HYDROXIDE SUSP 86179131966 Active Jazmin Stevens LPN Activ e ALAVERT 10 MG ORAL TABLET DISINTEGRATING Take one by mouth daily prn LORATADINE 07658508899 Active Jazmin Stevens LPN Act raymond IBU 600 MG ORAL TABLET 1 tab three times daily as needed mild pain IBUPROFEN 47951893618 Active Jazmin Stevens LPN Active [facility] TUSSIN DM 10-100 MG/5ML ORAL LIQUID 2 tsp every 6 hrs prn co ugh DEXTROMETHORPHAN-GUAIFENESIN 82888652272 Active Jazmin Stevens LPN Active GLUCAGON EMERGENCY 1 MG INJECTION KIT as directed for severe hypoglycemia GLUCAGON (RDNA) 67801915648 Active Jazmin Stevens LPN Active [facility] EAR DROPS 6.5 % OTIC SOLUTION 5 drops both ears for wax build up prn CARBAMIDE PEROXIDE 81411117999 Active Jazmin Walter PN Active MYLANTA MAXIMUM STRENGTH SUSPENSION Take/use as needed. ALUM & MAG HYDROXIDE-SIMETH SUSP 62375889199 Active Jazmin Stevens LPN Active ACETAMINOPHEN 325 MG ORAL TABLET Take/use as needed. ACETAMINOPHEN 57023678299 Active Jazmin Stevens LPN Active THEREMS-M ORAL TABLET Take one by mouth daily MULTIPLE VITAMINS-MINERALS 41583953143 Active Jazmin Stevens LPN Ac tive QUETIAPINE FUMARATE 50 MG ORAL TABLET 2 every am and 1 tab at noon for bipolar disorder QUETIAPINE FUMARATE 69679402174 Active Siri ryjanell Stevens LPN Active K-TAB 10 MEQ ORAL TABLET EXTENDED RELEASE one tab every other day 2 POTASSIUM CHLORIDE 06634003705 Active Jazmin Stevens LPN A ctive PROTONIX 40 MG ORAL TABLET DELAYED RELEASE Take one by mouth daily PANTOPRAZOLE SODIUM 91124726254 Active Jazmni Stevens LPN Active OLANZAPINE 20 MG ORAL TABLET Take one by mouth daily OLANZAPINE 53538768176 Active Jazmin Stevens LPN Active OLANZAPINE 10 MG ORAL TABLET take with 20mg tab to equal 30m g per day OLANZAPINE 66544666928 Active Jazmin Stevens LPN Active OCUVITE-LUTEIN ORAL TABLET Take one by mouth daily MULTIPLE VITAMINS-MINERALS 42662376437 Active Jazmin Stevens LPN Ac tive LOPRESSOR 50 MG ORAL TABLET Take one by mouth daily METOPROLOL TARTRATE 10488173904 Active Jazmin Stevens LPN Active METFORMIN HCL 1000 MG ORAL TABLET by mouth twice a day METFORMIN HCL 44473213968 Active Jazmin Stevens LPN Active LOSARTAN POTASSIUM 100 MG ORAL TABLET Take one by mouth daily 08/26 [place] POTASSIUM 55212775576 Active Jazmin Stevens LPN A ctive LITHIUM CARBONATE 300 MG ORAL CAPSULE by mouth twice a day LITHIUM CARBONATE 79267160897 Active Jazmin Stevens LPN Active FUROSEMIDE 20 MG ORAL TABLET one tab by mouth every other day 2019 FUROSEMIDE 40395108360 Active Jazmin Stevens LPN Active FLONASE SENSIMIST 27.5 MCG/SPRAY NASAL SUSPENSION two sprays ea nostril once daily FLUTICASONE FUROATE 49059017471 Active Jazmin Stevens LPN Active COLACE 100 MG ORAL CAPSULE Take one by mouth daily DOCUSATE SODIUM 08333037997 Active Jazmin Stevens LPN Active BUSPIRONE HCL 10 MG ORAL TABLET Take one by mouth 3 ti mes daily, morning, afternoon and evening BUSPIRONE HCL 84758691464 Active Jazmin Stevens LPN Active ABILIFY 20 MG ORAL TABLET Take one by mouth daily ARIPIPRAZOLE 09016015385 Active Jazmin Stevens LPN Active NORVASC 5 MG ORAL TABLET Take one by mouth daily AMLODIPINE BESYLATE 43679160601 Active Jazmin Stevens LPN Active STARLIX 120 MG ORAL TABLET three times daily before meals 7 STARLIX 120 MG ORAL TABLET 092181 NATEGLINIDE Inactive Vital Signs Date Name Value [...] mg/dL Encounters Code Encounter Date Provider Facility CPT-42040 [id number] Vst-Est Level V 23:31:00 CD T Archana Henderson [facility]-72734 [id number] Vst-New Level IV 17:35:56 C FRANK Henderson [facility]
--- OUTSIDE RECORDS SUMMARY | 2019-10-16 14:32 | XMS REPORT | Clinical Summary ---
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 Conditions or Problems Problem Name Problem Code Onset Date Status Entry Date Provider Comment Standard Description Annotate BMI 31-31.9 Refinement Archana Barton A PRN Body Mass Index 31.0-31.9, adult BMI 32-32.9 Active Archana Barton [employer] Body Mass Index 31.0-31.9, adult Obesity Class I (BMI 30-34.9) Active 08/26 Archana Beatriz [employer] Obesity, unspecified Noncompliance with dietary regimen V15.81 Active 2 Archana Barton [employer] Personal history of noncompl iance with medical treatment, presenting hazards to health Diabetes mellitus, type II with hyperglycemia 250.00 Active Archana Barton [employer] Diabetes mellitus without mention of complication, type II or unspecified type, not stated as uncontrolled [facility] use of insulin treatment V58.67 Active 2 Archana Barton [employer] Long-term (current) use of insulin Type 2 diabetes mellitus with other specified complication 250.8 0 Active Archana Barton [employer] Diabetes mellitus with other specified manifestations, type II or unspecified type, not stated as uncontrolled Medication List Medication Instructions Start Date Stop Date Generic Name ND Status Provider Patient Instruction BD PEN NEEDLE LUCIA U/F 32G X 4 MM USE TO INJECT INSULI N FOR FOUR INJECTIONS PER DAY FOR DIABETES MELLITUS TYPE II; E11.9 INSULIN PEN NEEDLE 68564363343 Active Archana Barton [employer] Active NOVOLOG FLEXPEN 100 UNIT/ML SUBCUTANEOUS SOLUTION PEN- INJECTOR 5units SC with each meal, TID for diabetes INSULIN ASPART 33580794096 Act raymond Archana Barton [employer] Active SOLIQUA 100-33 UNT-MCG/ML SUBCUTANEOUS SOLUTION PEN-IN JECTOR Increase now to 26units daily and then 6-15-20 please increase to 30 units INSULIN GLARGINE-LIXISENATIDE 46100865508 Active Archana Henderson [employer] Active STARLIX 120 MG ORAL TABLET three times daily before meals 7 NATEGLINIDE 44563927309 No Longer Active Archana Henderson [employer] A ctive VENTOLIN HFA 108 (90 BASE) MCG/ACT INHALATION AEROSOL SOLUTION Take/use as needed. ALBUTEROL SULFATE 23155854711 Active Jazmin hagen LPN Active TRIAMCINOLONE ACETONIDE 0.1 % EXTERNAL CREAM Take/use as needed. 20 19/08/26 TRIAMCINOLONE ACETONIDE 95171168736 Active Jazmin Stevens LPN Active EQL MILK OF MAGNESIA SUSPENSION Take/use as needed. MAGNESIUM HYDROXIDE SUSP 51052569197 Active Jazmin Stevens LPN Activ e ALAVERT 10 MG ORAL TABLET DISINTEGRATING Take one by mouth daily prn LORATADINE 12075103587 Active Jazmin Stevens LPN Act raymond IBU 600 MG ORAL TABLET 1 tab three times daily as needed mild pain IBUPROFEN 99331123197 Active Jazmin Stevens LPN Active [facility] TUSSIN DM 10-100 MG/5ML ORAL LIQUID 2 tsp every 6 hrs prn co ugh DEXTROMETHORPHAN-GUAIFENESIN 75267835876 Active Jazmin Stevens LPN Active GLUCAGON EMERGENCY 1 MG INJECTION KIT as directed for severe hypoglycemia GLUCAGON (RDNA) 64755842705 Active Jazmin Stevens LPN Active [facility] EAR DROPS 6.5 % OTIC SOLUTION 5 drops both ears for wax build up prn CARBAMIDE PEROXIDE 10032546963 Active Jazmin Walter PN Active MYLANTA MAXIMUM STRENGTH SUSPENSION Take/use as needed. ALUM & MAG HYDROXIDE-SIMETH SUSP 04809414800 Active Jazmin Stevens LPN Active ACETAMINOPHEN 325 MG ORAL TABLET Take/use as needed. ACETAMINOPHEN 80166134763 Active Jazmin Rodney WISE Active THEREMS-M ORAL TABLET Take one by mouth daily MULTIPLE VITAMINS-MINERALS 35530382675 Active Jazmin Rodney WISE Ac tive QUETIAPINE FUMARATE 50 MG ORAL TABLET 2 every am and 1 tab at noon for bipolar disorder QUETIAPINE FUMARATE 51533294938 Active Siri lane Rodney WISE Active K-TAB 10 MEQ ORAL TABLET EXTENDED RELEASE one tab every other day 2 POTASSIUM CHLORIDE 94208924846 Active Jazmin Rodney WISE A ctive PROTONIX 40 MG ORAL TABLET DELAYED RELEASE Take one by mouth daily PANTOPRAZOLE SODIUM 68605634861 Active Jazmin Stevens LPN Active OLANZAPINE 20 MG ORAL TABLET Take one by mouth daily OLANZAPINE 80098886807 Active Jazmin Rodney WISE Active OLANZAPINE 10 MG ORAL TABLET take with 20mg tab to equal 30m g per day OLANZAPINE 98218965320 Active Jazmin Rodney WISE Active OCUVITE-LUTEIN ORAL TABLET Take one by mouth daily MULTIPLE VITAMINS-MINERALS 56821835599 Active Jazmin Rodney WISE Ac tive LOPRESSOR 50 MG ORAL TABLET Take one by mouth daily METOPROLOL TARTRATE 83830840289 Active Jazmin Rodney WISE Active METFORMIN HCL 1000 MG ORAL TABLET by mouth twice a day METFORMIN HCL 01583423673 Active Jazmin Rodney WISE Active LOSARTAN POTASSIUM 100 MG ORAL TABLET Take one by mouth daily 08/26 LOSARTAN POTASSIUM 75956856593 Active Jazmin Rodney WISE A ctive LITHIUM CARBONATE 300 MG ORAL CAPSULE by mouth twice a day LITHIUM CARBONATE 23263710796 Active Jazmin Stevens LPN Active FUROSEMIDE 20 MG ORAL TABLET one tab by mouth every other day 2019 FUROSEMIDE 18016805431 Active Jazmin Stevens LPN Active FLONASE SENSIMIST 27.5 MCG/SPRAY NASAL SUSPENSION two sprays ea nostril once daily FLUTICASONE FUROATE 70935780763 Active Jazmin Stevens LPN Active COLACE 100 MG ORAL CAPSULE Take one by mouth daily DOCUSATE SODIUM 64009170106 Active Jazmin Stevens LPN Active BUSPIRONE HCL 10 MG ORAL TABLET Take one by mouth 3 ti mes daily, morning, afternoon and evening BUSPIRONE HCL 80573313125 Active Jazmin Stevens LPN Active ABILIFY 20 MG ORAL TABLET Take one by mouth daily ARIPIPRAZOLE 35643415014 Active Jazmin Stevens LPN Active NORVASC 5 MG ORAL TABLET Take one by mouth daily AMLODIPINE BESYLATE 44370117417 Active Jazmin Stevens LPN Active STARLIX 120 MG ORAL TABLET three times daily before meals 7 STARLIX 120 MG ORAL TABLET 856144 NATEGLINIDE Inactive Vital Signs Date Name Value [...] mg/dL Encounters Code Encounter Date Provider Facility CPT-29236 [id number] Vst-Est Level V 23:31:00 CD T Archana Henderson [facility] CPT-51560 [id number] Vst-New Level IV 17:35:56 C FRANK Henderson [facility]
--- OUTSIDE RECORDS SUMMARY | 2019-10-16 14:33 | XMS REPORT ---
Author Tenzin [facility] eClinicalWorks Address Unknown Phone Unavailable Care Team Providers Care Paper Twister Tender Name Role Phone NATHALIA SHEETS CP Unavailable Allergies, Adverse Reactions, Alerts Substance Reaction Event Type N.K.D.A. Info Not Available Non Drug Allergy Problems Problem Type Condition Code Onset Dates Condition Statu s Assessment Encounter for dental examination Z01.20 Active Problem Encounter for dental examination Z01.20 Active Medications Medication Code System Code Instructions Start Date End Date Status Dosage Albuterol Sulfate [facility] [address]-78 (2.5 MG/3ML) 0 .083% Inhalation Three times a day 3 ml Ocuvite [facility] [address]-01 Orally not defin ed Losartan Potassium [facility] [address]-98 100 MG Orally Once a day 1 tablet Docusate Sodium [facility] [address]-55 50 MG Orally Once a day 1 capsule as needed PreviDent [facility] [address]-80 1.1 % Dental no t defined Miconazole [facility] [address]-61 50 MG Bucally Once a day 1 tablet Acetaminophen [facility] 68830-42203 80 MG/ML Orally not defined Metoprolol Succinate NDC 0 50 [place] [address]-38 10 MG/ML Orally Twice a day 1 ml Combivent [facility] [address]-09 18-103 MCG/ACT Inhalation Four times a d ay 2 puffs Docusate Sodium-Casanthranol NDC 0 100-30 [place] [address]-52 Orally Once a day 1 [place] [address]-12 200 MG Orally every 6 hrs 1 capsule [place] [address]-50 7.75 % Orally Four times a day 5 ml as needed Nateglinide [facility] [address]-73 60 MG Orally Three times a day 1 tablet before meals nexium NDC 0 Oral 1 [place] [address]-74 5 MG Orally Once a day 1 tablet Timblin Carbonate [facility] [address]-73 300 MG Orally Three times a day 1 capsule Fluticasone Propionate [facility] [address]-83 50 MCG/ACT Nasally Once a d ay 1 spray in each nostril BusPIRone HCl [facility] [address]-94 5 MG Orally Three times a day 1 tablet Quetiapine Fumarate [facility] [address]-65 50 MG Orally Once a day 1 tablet at bedtime Almacone [facility] [address]-35 200-200-20 MG/5ML Orally Four times a day 10 ml as needed Abilify [facility] [address]-18 5 MG Orally Once a day 1 tablet Ventolin HFA [facility] [address]-84 90 MCG/ACT Inhalation every 4 hrs 2 puffs as needed Olanzapine [facility] [address]-12 10 MG Orally Once a day 1 tablet Loratadine [facility] [address]-40 10 MG Orally Once a day 10 ml Metformin HCl [facility] [address]-67 1000 MG Orally Twice a day 1 tablet with meals Procedures Procedure Coding System Code Date INTRAORL-PERIAPICAL 1 FILM 41383 CPT-4 D0220 Apr 07, 2015 INTRAORL-PERIAPICAL EA ADD FILM CPT-4 D0230 Apr 07, 2015 PERIODIC ORAL EXAMINATION CPT-4 D0120 Apr BITEWINGS - FOUR FILMS CPT-4 D0274 Apr 07, 016 INTRAORL-PERIAPICAL EA ADD FILM CPT-4 D0230 Apr 07, 2015 TOPICAL FLUORIDE VARNISH CPT-4 D1206 Apr 07, 2015 Periodontal maint procedures CPT-4 D4910 Apr 07, 2015 Vital Signs Date/Time: Apr 07, 2015 Blood Pressure Diastolic 80 mmHg Blood Pressure Systolic 126 mmHg Cardiac Monitoring Heart Rate 77 bpm Results No Known Results Summary Purpose eClinicalWorks Submission
--- OUTSIDE RECORDS SUMMARY | 2019-10-16 14:33 | XMS REPORT ---
Author Author Tenzin BETANCUR Organization [facility] Address [address] [place] [address] Care Team Providers Care Service Officer Name Role Phone RAVEN BETANCUR Unavailable PROBLEMS Unknown Problems ALLERGIES No Known Allergies ENCOUNTERS Encounter Location Date Diagnosis [facility] [address] [place] [address] Aug, 18 Encounter for dental exam and cleaning w/o abnormal findings Z01.20 [facility] [address] [id number] [address] [place] [address] [id number] Jul, Dental caries K02.9 and [place] al examination Z01.20 [facility] [address] [id number] [place] [address] [id number] May, Encounter for dental exam an d cleaning w/o abnormal findings Z01.20 [facility] [address] [id number] [address] [place] [address] [id number] May, Dental examination Z01.20 [facility] [address] [id number] [address] [place] [address] [id number] Mar, Encounter for dental exam an d cleaning w/o abnormal findings Z01.[address] [facility] [address] [place] [address] Mar, 17 Dental examination Z01.20 [facility] [address] [id number] [address] [place] [address] [id number] Dec, Encounter for dental examina tion and cleaning with abnormal findings Z01.21 [facility] [address] [id number] [address] [place] [address] [id number] Aug, Encounter for dental examina tion and cleaning without abnormal findings Z01.20 [facility] [address] [id number] [phone] Aug, Dental examination Z01.20 [facility] [address] [id number] [phone] Apr, Dental examination Z01.20 [facility] [address] [id number] [address] [place] [address] [id number] Apr, Encounter for dental examina tion and cleaning without abnormal findings Z01.20 [facility] [address] [id number] [address] [place] [address] [id number] Dec, Encounter for dental examina tion and cleaning without abnormal findings Z01.20 [facility] [address] [id number][place] [phone] Oct, Dental examination Z01.20 [facility] [address] [address] [id number] [phone] Aug, Encounter for dental examination Z01.20 [facility] [address] [id number][place] [phone] July, Dental examination Z01.20 [facility] [address] [id number] [address] [place] [address] [id number] July, Encounter for dental examina tion and cleaning without abnormal findings Z01.20 [facility] [address] [id number] [address] [place] [address] [id number] July, Dental examination Z01.20 [facility] [address] [id number] [address] [place] [address] [id number] May, Dental examination Z01.20 [facility] [address] [id number] [address] [place] [address] [id number] Apr, Encounter for dental examina tion Z01.20 [facility] [address] [id number] [address] [place] [address] [id number] Jan, Dental examination Z01.20 [facility] [address] [id number] [address] [place] [address] [id number] Dec, Dental examination V72.2 [facility] [address] [id number] [address] [phone] July, Dental examination V72.2 IMMUNIZATIONS No Known Immunizations SOCIAL HISTORY Never Assessed REASON FOR VISIT PLAN OF CARE Activity Details Follow Up prn Reason:KRISTIAN VITAL SIGNS Blood pressure systolic 140 mmHg 2017-07-23 Blood pressure diastolic 72 mmHg 2017-07-23 MEDICATIONS Medication Instructions Dosage Frequency Start Date End Date Duration S tatus Abilify 5 MG Orally Once a day 1 tablet 24h Active Combivent 18-103 MCG/ACT Inhalation Four times a day 2 puffs 6h Active PreviDent 1.1 % Active Albuterol Sulfate (2.5 MG/3ML) 0.083% Inhalation Three times a day 3 m l 8h Active Ventolin HFA 90 MCG/ACT Inhalation every 4 hrs 2 puffs as needed 4h Active Fluticasone Propionate 50 MCG/ACT Nasally Once a day 1 spray in each nostril 24h Active Furosemide 10 MG/ML Orally Twice a day 1 ml 12h Active Milk of Magnesia 7.75 % Orally Four times a day 5 ml as needed 6h Active Losartan Potassium 100 MG Orally Once a day 1 tablet 24h Active Docusate Sodium 50 MG Orally Once a day 1 capsule as needed 24h Active Amlodipine Besylate 5 MG Orally Once a day 1 tablet 24h Active Therems Orally Once a day 1 tablet 24h Activ e Loratadine 10 MG Orally Once a day 10 ml 24h Active nexium 1 tab Active Metoprolol Succinate 50 MG Active BusPIRone HCl 5 MG Orally Three times a day 1 tablet 8h Active Acetaminophen 80 MG/ML A ctive Almacone 200-200-20 MG/5ML Orally Four times a day 10 ml as needed 6h Active Quetiapine Fumarate 50 MG Orally Once a day 1 tablet at bedtime 24h Active Ocuvite Active Metformin HCl 1000 MG Orally Twice a day 1 tablet with meals 12h Active [place] Carbonate 300 MG Orally Three times a day 1 capsule 8h Active Docusate Sodium-Casanthranol 100-30 MG Active Nateglinide 60 MG Orally Three times a day 1 tablet before meals 8h Active Ibuprofen 200 MG Orally every 6 hrs 1 capsule as needed 6h Active Olanzapine 10 MG Orally Once a day 1 tablet 24h Active Miconazole 50 MG Bucally Once a day 1 tablet 24h Active RESULTS No Results PROCEDURES Procedure Date Ordered Result Body Site PRFABR STAINLESS STEEL CROWN-PERM July 23, 2017 EXTRAC ERUPTED TOOTH/EXPOSED ROOT July 23, 2017 INSTRUCTIONS MEDICATIONS ADMINISTERED No Known Medications MEDICAL (GENERAL) HISTORY Type Description Date Medical History High BP Medical History Diabetes Medical History Asthma Medical History Mild intellect disability Medical History Schizophrenia Medical History Pedal Edema
--- OUTSIDE RECORDS SUMMARY | 2019-10-16 14:33 | XMS REPORT | Clinical Summary ---
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 INSULIN GLARGINE -LIXISENATIDE 64660975395 Active Archana Henderson [place] ON Active VENTOLIN HFA 108 (90 BASE) MCG/ACT INHALATION AEROSOL SOLUTION Take/use as needed. ALBUTEROL SULFATE 73928132732 Active Jazmin hagen LPN Active TRIAMCINOLONE ACETONIDE 0.1 % EXTERNAL CREAM Take/use as needed. 20 19/08/26 TRIAMCINOLONE ACETONIDE 32000675057 Active Jazmin Stevens LPN Active EQL MILK OF MAGNESIA SUSPENSION Take/use as needed. MAGNESIUM HYDROXIDE SUSP 33616676194 Active Jazmin Stevens LPN Activ e ALAVERT 10 MG ORAL TABLET DISINTEGRATING Take one by mouth daily prn LORATADINE 38772592026 Active Jazmin Stevens LPN Act raymond IBU 600 MG ORAL TABLET 1 tab three times daily as needed mild pain IBUPROFEN 88931613642 Active Jazmin Stevens LPN Active [facility] TUSSIN DM 10-100 MG/5ML ORAL LIQUID 2 tsp every 6 hrs prn co ugh DEXTROMETHORPHAN-GUAIFENESIN 67413762404 Active Jazmin Stevens LPN Active GLUCAGON EMERGENCY 1 MG INJECTION KIT as directed for severe hypoglycemia GLUCAGON (RDNA) 54608911546 Active Jazmin Stevens LPN Active [facility] EAR DROPS 6.5 % OTIC SOLUTION 5 drops both ears for wax build up prn CARBAMIDE PEROXIDE 28339526102 Active Jazmin Walter PN Active MYLANTA MAXIMUM STRENGTH SUSPENSION Take/use as needed. ALUM & MAG HYDROXIDE-SIMETH SUSP 93562405021 Active Jazmin Stevens LPN Active ACETAMINOPHEN 325 MG ORAL TABLET Take/use as needed. ACETAMINOPHEN 15392263514 Active Jazmin Stevens LPN Active THEREMS-M ORAL TABLET Take one by mouth daily MULTIPLE VITAMINS-MINERALS 59796592253 Active Jazmin Stevens LPN Ac tive QUETIAPINE FUMARATE 50 MG ORAL TABLET 2 every am and 1 tab at noon for bipolar disorder QUETIAPINE FUMARATE 60187569416 Active Siri Stevens LPN Active K-TAB 10 MEQ ORAL TABLET EXTENDED RELEASE one tab every other day 2 POTASSIUM CHLORIDE 07546223733 Active Jazmin Stevens LPN A ctive PROTONIX 40 MG ORAL TABLET DELAYED RELEASE Take one by mouth daily PANTOPRAZOLE SODIUM 58188201297 Active Jazmin Stevens LPN Active OLANZAPINE 20 MG ORAL TABLET Take one by mouth daily OLANZAPINE 28843793469 Active Jazmin Stevens LPN Active OLANZAPINE 10 MG ORAL TABLET take with 20mg tab to equal 30m g per day OLANZAPINE 47610237091 Active Jazmin Rodney WISE Active OCUVITE-LUTEIN ORAL TABLET Take one by mouth daily MULTIPLE VITAMINS-MINERALS 51281840349 Active Jazmin Casillasjayson WISE Ac tive STARLIX 120 MG ORAL TABLET three times daily before meals 7 NATEGLINIDE 06491740369 Active Jazmin Stevens LPN Active LOPRESSOR 50 MG ORAL TABLET Take one by mouth daily METOPROLOL TARTRATE 66317735462 Active Jazmin Rodney WISE Active METFORMIN HCL 1000 MG ORAL TABLET by mouth twice a day METFORMIN HCL 60134764660 Active Jazmin Rodney WISE Active LOSARTAN POTASSIUM 100 MG ORAL TABLET Take one by mouth daily 08/26 LOSARTAN POTASSIUM 65809862243 Active Jazmin Rodney WISE A ctive LITHIUM CARBONATE 300 MG ORAL CAPSULE by mouth twice a day LITHIUM CARBONATE 52416042377 Active Jazmin Stevens LPN Active FUROSEMIDE 20 MG ORAL TABLET one tab by mouth every other day 2019 FUROSEMIDE 89783274453 Active Jazmin Rodney WISE Active FLONASE SENSIMIST 27.5 MCG/SPRAY NASAL SUSPENSION two sprays ea nostril once daily FLUTICASONE FUROATE 77211821498 Active Jazmin Rodney WISE Active COLACE 100 MG ORAL CAPSULE Take one by mouth daily DOCUSATE SODIUM 92019132266 Active Jazmin Stevens LPN Active BUSPIRONE HCL 10 MG ORAL TABLET Take one by mouth 3 ti mes daily, morning, afternoon and evening BUSPIRONE HCL 99416851587 Active Jazmin Rodney WISE Active ABILIFY 20 MG ORAL TABLET Take one by mouth daily ARIPIPRAZOLE 50853299774 Active Jazmin Stevens LPN Active NORVASC 5 MG ORAL TABLET Take one by mouth daily AMLODIPINE BESYLATE 61604422569 Active Jazmin Rodney WISE Active Vital Signs [...] mg/dL Encounters Code Encounter Date Provider Facility CPT-[id number] Vst-New Level IV 17:35:56 C FRANK Henderson H[facility]ER ON [facility]
--- OUTSIDE RECORDS SUMMARY | 2019-10-16 14:33 | XMS REPORT ---
Author Author Tenzin ORTEGA [facility] eClinicalWorks Address Unknown Phone Unavailable Care Team Providers Care Organ Teacher Name Role Phone NATALIA ORTEGA CP Unavailable Allergies, Adverse Reactions, Alerts Substance Reaction Event Type N.K.D.A. Info Not Available Non Drug Allergy Problems Problem Type Condition Code Onset Dates Condition Statu s Assessment Dental examination Z01.20 Active Problem Encounter for dental examination Z01.20 Active Medications Medication Code System Code Instructions Start Date End Date Status Dosage Nateglinide [facility] [address]-44 60 MG Orally Three times a day 1 tablet before meals Metoprolol Succinate NDC 0 50 [place] [address]-83 10 MG/ML Orally Twice a day 1 ml Fluticasone Propionate [facility] [address]-38 50 MCG/ACT Nasally Once a d ay 1 spray in each nostril Ventolin HFA [facility] [address]-32 90 MCG/ACT Inhalation every 4 hrs 2 puffs as needed Acetaminophen [facility] 68[address]-47803 80 MG/ML [place] [address]-99 300 MG Orally Three times a day 1 capsule Albuterol Sulfate [facility] [address]-11 (2.5 MG/3ML) 0 .083% Inhalation Three times a day 3 [place] [address]-06 100 MG Orally Once a day 1 tablet Almacone [facility] [address]-24 200-200-20 MG/5ML Orally Four times a day 10 [place] [address]-64 1000 MG Orally Twice a day 1 tablet with meals PreviDent [facility] [address]-66 1.1 % [place] [address]-03 200 MG Orally every 6 hrs 1 [place] [address]-14 50 MG Bucally Once a day 1 tablet Ocuvite [facility] [address]-79 Orally not defin ed nexium NDC 0 Oral 1 tab Abilify [facility] [address]-04 5 MG Orally Once a day 1 tablet Milk of Magnesia [facility] [address]-84 7.75 % Orally Four times a day 5 ml as needed Docusate Sodium [facility] [address]-52 50 MG Orally Once a day 1 capsule as needed BusPIRone HCl [facility] [address]-41 5 MG Orally Three times a day 1 tablet Quetiapine Fumarate [facility] [address]-34 50 MG Orally Once a day 1 tablet at bedtime Combivent [facility] [address]-79 18-103 MCG/ACT Inhalation Four times a d ay 2 puffs Amlodipine Besylate [facility] [address]-34 5 MG Orally Once a day 1 tablet Docusate Sodium-Casanthranol NDC 0 100-30 MG Orally not defined Olanzapine [facility] [address]-79 10 MG Orally Once a day 1 tablet Loratadine [facility] [address]-41 10 MG Orally Once a day 10 ml Therems [facility] [address]-53 Orally Once a day 1 tablet Procedures Procedure Coding System Code Date AMALGAM-TWO SURFACES PRIMARY/PERM CPT-4 D2150 August 23, 2015 Billing Notes on claim CPT-4 EC109 August 22, 2 016 AMALGAM-TWO SURFACES PRIMARY/PERM CPT-4 D2150 August 23, 2015 Vital Signs Date/Time: August 23, 2015 Blood Pressure Diastolic 81 mmHg Blood Pressure Systolic 127 mmHg Results No Known Results Summary Purpose eClinicalWorks Submission
--- OUTSIDE RECORDS SUMMARY | 2019-10-16 14:33 | XMS REPORT | Clinical Summary ---
Author Author Admin, Tenzin CABRERA Organization [facility] Address Unknown Phone Unavailable Allergies, Adverse Reactions, Alerts Allergy Name Reaction Description Start Date Severity Status Pr ovider Allergies Unknown Conditions or Problems Problem Name Problem Code Onset Date Status Entry Date Provider Comment Standard Description Annotate Problems Unknown Active Medication List Medication Instructions Start Date Stop Date Generic Name NDC Status Provider Patient Instruction VENTOLIN HFA 108 (90 BASE) MCG/ACT INHALATION AEROSOL SOLUTION Take/use as needed. ALBUTEROL SULFATE 00304082548 Active Jazmin hagen LPN Active TRIAMCINOLONE ACETONIDE 0.1 % EXTERNAL CREAM Take/use as needed. 20 19/08/26 TRIAMCINOLONE ACETONIDE 82094071274 Active Jazmin Stevens LPN Active EQL MILK OF MAGNESIA SUSPENSION Take/use as needed. MAGNESIUM HYDROXIDE SUSP 34406374482 Active Jazmin Stevens LPN Activ e ALAVERT 10 MG ORAL TABLET DISINTEGRATING Take one by mouth daily prn LORATADINE 37538744639 Active Jazmin Stevens LPN Act raymond IBU 600 MG ORAL TABLET 1 tab three times daily as needed mild pain IBUPROFEN 91505221158 Active Jazmin Stevens LPN Active [facility] TUSSIN DM 10-100 MG/5ML ORAL LIQUID 2 tsp every 6 hrs prn co ugh DEXTROMETHORPHAN-GUAIFENESIN 76159382106 Active Jazmin Stevens LPN Active GLUCAGON EMERGENCY 1 MG INJECTION KIT as directed for severe hypoglycemia GLUCAGON (RDNA) 34757571852 Active Jazmin Stevens LPN Active [facility] EAR DROPS 6.5 % OTIC SOLUTION 5 drops both ears for wax build up prn CARBAMIDE PEROXIDE 35744101213 Active Jazmin Walter PN Active MYLANTA MAXIMUM STRENGTH SUSPENSION Take/use as needed. ALUM & MAG HYDROXIDE-SIMETH SUSP 36062959375 Active Jazmin Stevens LPN Active ACETAMINOPHEN 325 MG ORAL TABLET Take/use as needed. ACETAMINOPHEN 38324922543 Active Jazmin Stevens LPN Active THEREMS-M ORAL TABLET Take one by mouth daily MULTIPLE VITAMINS-MINERALS 14539909805 Active Jazmin Rodney WISE Ac tive SOLIQUA 100-33 UNT-MCG/ML SUBCUTANEOUS SOLUTION PEN-INJECTOR 16u daily INSULIN GLARGINE-LIXISENATIDE 89801491178 Active Jazmin Stevens LPN Active QUETIAPINE FUMARATE 50 MG ORAL TABLET 2 every am and 1 tab at noon for bipolar disorder QUETIAPINE FUMARATE 94724455804 Active Siri vaughnjanell Stevens LPN Active K-TAB 10 MEQ ORAL TABLET EXTENDED RELEASE one tab every other day 2 POTASSIUM CHLORIDE 57966160843 Active Jazmin Stevens LPN A ctive PROTONIX 40 MG ORAL TABLET DELAYED RELEASE Take one by mouth daily PANTOPRAZOLE SODIUM 25509509082 Active Jazmin Stevens LPN Active OLANZAPINE 20 MG ORAL TABLET Take one by mouth daily OLANZAPINE 55280438654 Active Jazmin Stevens LPN Active OLANZAPINE 10 MG ORAL TABLET take with 20mg tab to equal 30m g per day OLANZAPINE 83883664105 Active Jazmin Stevens LPN Active OCUVITE-LUTEIN ORAL TABLET Take one by mouth daily MULTIPLE VITAMINS-MINERALS 45967189063 Active Jazmin Stevens LPN Ac tive STARLIX 120 MG ORAL TABLET three times daily before meals 7 NATEGLINIDE 52751087310 Active Jazmin Stevens LPN Active LOPRESSOR 50 MG ORAL TABLET Take one by mouth daily METOPROLOL TARTRATE 14125115792 Active Jazmin Stevens LPN Active METFORMIN HCL 1000 MG ORAL TABLET by mouth twice a day METFORMIN HCL 63155082555 Active Jazmin Stevens LPN Active LOSARTAN POTASSIUM 100 MG ORAL TABLET Take one by mouth daily 08/26 LOSARTAN POTASSIUM 79124337929 Active Jazmin Stevens LPN A ctive LITHIUM CARBONATE 300 MG ORAL CAPSULE by mouth twice a day LITHIUM CARBONATE 96336450753 Active Jazmin Stevens LPN Active FUROSEMIDE 20 MG ORAL TABLET one tab by mouth every other day 2019 FUROSEMIDE 45540174215 Active Jazmin Stevens LPN Active FLONASE SENSIMIST 27.5 MCG/SPRAY NASAL SUSPENSION two sprays ea nostril once daily FLUTICASONE FUROATE 47810112117 Active Jazmin Stevens LPN Active COLACE 100 MG ORAL CAPSULE Take one by mouth daily DOCUSATE SODIUM 02688836299 Active Jazmin Stevens LPN Active BUSPIRONE HCL 10 MG ORAL TABLET Take one by mouth 3 ti mes daily, morning, afternoon and evening BUSPIRONE HCL 08316471607 Active Jazmin Stevens LPN Active ABILIFY 20 MG ORAL TABLET Take one by mouth daily ARIPIPRAZOLE 13345771783 Active Jazmin Stevens LPN Active NORVASC 5 MG ORAL TABLET Take one by mouth daily AMLODIPINE BESYLATE 29765416549 Active Jazmin Stevens LPN Active Diagnostic Results Date Name Value Unit Range Description Chart Maintenance: outside lab added to flowsheet - Chemistry hemoglobin A1C, blood, as % of total hemoglobin 8.1 % blood glucose 291 mg/dL creatinine, serum 0.84 mg/dL cholesterol, serum 180 mg/dL LDL cholesterol, serum 94 mg/dL HDL cholesterol, serum 69 mg/dL triglyceride, serum, fasting 79 mg/dL
--- OUTSIDE RECORDS SUMMARY | 2019-10-16 14:33 | XMS REPORT ---
Author Author Tenzin PAINTING [facility] Address [address] [place] [address] Phone Unavailable Care Team Providers Care Certified Pedorthotist Name Role Phone HCANDU PAINTING Unavailable Unavailable PROBLEMS Unknown Problems ALLERGIES No Known Allergies ENCOUNTERS Encounter Location Date Diagnosis [facility] [address] [id number] [address] [place] [address] Aug, [facility] [address] [id number] [phone] Aug, [facility] [address] [id number] [address] [place] [address] [phone] Jul, Dental caries K02.9 and Dane al examination Z01.20 [facility] [id number] [place] [address] [phone] May, Encounter for dental exam an d cleaning w/o abnormal findings Z01.20 [facility] [address] [id number] [address] [place] [address] [phone] May, Dental examination Z01.20 [facility] [address] [id number] [address] [place] [address] [phone] Mar, Encounter for dental exam an d cleaning w/o abnormal findings Z01.20 [facility] [place] [address] [id number] [place], [place] [phone] Mar, Dental examination Z01.20 [facility] [address] [id number] [address] [place] [address] [phone] Dec, Encounter for dental examina tion and cleaning with abnormal findings Z01.21 [facility] [address] [id number] [address] [place] [address] [phone] Aug, Encounter for dental examina tion and cleaning without abnormal findings Z01.20 [facility] [address] [id number] [place] [phone] Aug, Dental examination Z01.20 [facility] [address] [id number] [address] [place] [address] [phone] Apr, Encounter for dental examina tion and cleaning without abnormal findings Z01.[address] [id number] [phone] Apr, Dental examination Z01.20 [facility] [address] [id number] [address] [place] [address] [phone] Dec, Encounter for dental examina tion and cleaning without abnormal findings Z01.20 [facility] [address] [id number] [phone] Oct, Dental examination Z01.20 [facility] [address] [id number][place] [phone] Aug, Encounter for dental examination Z01.20 [facility] [address] [id number] [phone] July, Dental examination Z01.20 [facility] [address] [id number] [address] [place] [address] [phone] July, Encounter for dental examina tion and cleaning without abnormal findings Z01.20 [facility] [address] [id number] [address] [place] [address] [phone] July, Dental examination Z01.20 [facility] [address] [id number] [address] [place] [address] [phone] May, Dental examination Z01.20 [facility] [address] [id number] [address] [place] [address] [phone] Apr, Encounter for dental examina tion Z01.20 [facility] [address] [id number] [address] [place] [address] [phone] Jan, Dental examination Z01.20 [facility] [address] [id number] [address] [place] [address] [phone] Dec, Dental examination V72.2 [facility] [place] [facility] [address] [id number] [address] [place] [phone] July, Dental examination V72.2 IMMUNIZATIONS No Known Immunizations SOCIAL HISTORY Never Assessed REASON FOR VISIT ADULT OUTREACH [facility] PLAN OF CARE Activity Details Follow Up PATIENT HAS 924 APPT. Reason :TE WITH DR BETANCUR VITAL SIGNS MEDICATIONS Medication Instructions Dosage Frequency Start Date End Date Duration S tatus Amlodipine Besylate 5 MG Orally Once a day 1 tablet 24h Active Almacone 200-200-20 MG/5ML Orally Four times a day 10 ml as needed 6h Active PreviDent 1.1 % Active Nateglinide 60 MG Orally Three times a day 1 tablet before meals 8h Active Docusate Sodium-Casanthranol 100-30 MG Active Losartan Potassium 100 MG Orally Once a day 1 tablet 24h Active Fluticasone Propionate 50 MCG/ACT Nasally Once a day 1 spray in each nostril 24h Active Miconazole 50 MG Bucally Once a day 1 tablet 24h Active Furosemide 10 MG/ML Orally Twice a day 1 ml 12h Active BusPIRone HCl 5 MG Orally Three times a day 1 tablet 8h Active Abilify 5 MG Orally Once a day 1 tablet 24h Active Therems Orally Once a day 1 tablet 24h Activ e Olanzapine 10 MG Orally Once a day 1 tablet 24h Active Albuterol Sulfate (2.5 MG/3ML) 0.083% Inhalation Three times a day 3 m l 8h Active nexium 1 tab Active Docusate Sodium 50 MG Orally Once a day 1 capsule as needed 24h Active Milk of Magnesia 7.75 % Orally Four times a day 5 ml as needed 6h Active Loratadine 10 MG Orally Once a day 10 ml 24h Active Quetiapine Fumarate 50 MG Orally Once a day 1 tablet at bedtime 24h Active Ocuvite Active Ventolin HFA 90 MCG/ACT Inhalation every 4 hrs 2 puffs as needed 4h Active Acetaminophen 80 MG/ML A ctive Metformin HCl 1000 MG Orally Twice a day 1 tablet with meals 12h Active Metoprolol Succinate 50 MG Active [place] Carbonate 300 MG Orally Three times a day 1 capsule 8h Active Combivent 18-103 MCG/ACT Inhalation Four times a day 2 puffs 6h Active Ibuprofen 200 MG Orally every 6 hrs 1 capsule as needed 6h Active RESULTS No Results PROCEDURES Procedure Date Ordered Result Body Site PROPHYLAXIS - ADULT Mar 21, 2017 INSTRUCTIONS MEDICATIONS ADMINISTERED No Known Medications MEDICAL (GENERAL) HISTORY Type Description Date Medical History High BP Medical History Diabetes Medical History Asthma Medical History Mild intellect disability Medical History Schizophrenia Medical History Pedal Edema
--- OUTSIDE RECORDS SUMMARY | 2019-10-16 14:33 | XMS REPORT ---
Author Author Tenzin BETANCUR [facility] Address [address] [place] [address] Care Team Providers Care Baler Operator Name Role Phone RAVEN BETANCUR Unavailable PROBLEMS Type Condition ICD9-CM Code [id number] Code Onset Dates Condition S tatus SNOMED Code Problem Encounter for dental examination Z01.20 Active 781956898 ALLERGIES No Information SOCIAL HISTORY Never Assessed PLAN OF CARE Activity Details Follow Up Restorative & TE Reason: VITAL SIGNS MEDICATIONS Unknown Medications RESULTS No Results PROCEDURES Procedure Date Ordered Result Body Site AMALGAM-ONE SURFACE PRIMARY/PERM August 31, 2016 Billing Notes on claim August 31, 2016 Dental Outreach adjust balance August 31, 2016 IMMUNIZATIONS No Known Immunizations MEDICAL (GENERAL) HISTORY Type Description Date Medical History High BP Medical History Diabetes Medical History Asthma Medical History Mild intellect disability Medical History Schizophrenia Medical History Pedal Edema
--- OUTSIDE RECORDS SUMMARY | 2019-10-16 14:33 | XMS REPORT ---
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 10 May, 2010 Active 71883971 Problem Chewing tobacco nicotine dependence, uncomplicated F17.220 15 Mar, 2015 Active 511753717 Problem Follow-up examination, following unspecified surgery Z09 24 May, 2008 Active 425521679 Problem Intellectual disability F79 Active 743813098 Problem Essential hypertension, benign I10 Active 8255798 Problem Esophageal reflux K21.9 Active 24 0991553 Problem Schizophrenia F20.9 Active 272833 04 Problem Moderate episode of recurrent major depressive disorder F33.1 Active 655030865 Problem Mild intellectual disability F70 A ctive 32143251 Problem Pure hypercholesterolemia E78.00 Acti ve 036378986 Problem Type 2 diabetes mellitus wit hout complication, without long-term current use of insulin E11.9 Active 916461349 Problem Type 2 diabetes mellitus with diabetic chronic kidney disease E11.22 Active 77382090 Problem Type 2 diabetes mellitus wit h hyperglycemia, unspecified whether superintendent [employer] insulin use E11.65 Active 39152875752 9109 Problem Asthma J45.909 Active 713321364 Problem Chronic kidney disease, stage III (moderate) N18.3 Active 961687553 Problem Vasculogenic erectile dysfun ction, unspecified vasculogenic erectile dysfunction type N52.9 Active 488698872 Problem Long-term insulin use Z79.4 Active 708528656 Problem Neuropathy G62.9 Active 822238739 ALLERGIES No Information ENCOUNTERS Encounter Location Date Diagnosis [facility] [address] [place] [address] 04 Mar, 2019 [facility] [address] [place] [phone] Dec, 9 [facility] ABBY DRAKE [address] [address] Dec, [facility] ABB[facility] [address] [address] Oct, [address] [address] Oct, [address] [address] Oct, Type 2 diabetes mellitus with diabetic c hronic kidney disease E11.22 ; Essential hypertension, benign I10 ; Mild intellectual disability F70 ; Neuropathy G62.9 and Long-term insulin use Z79.[address] [address] Oct, Type 2 diabetes mellitus with diabetic c hronic kidney disease E11.[address] [address] Oct, [facility] [address] [place] [address] Oct, [facility] [place] [address] [address] [place] [address] 0 7 Oct, 2018 Caries K02.9 ; Dental examination Z01.20 and Oral health maintenance status requiring routine preventive dental care K08.[address] [address] Sep, Type 2 diabetes mellitus with diabetic c hronic kidney disease E11.22 [facility] [place] [address] Sep, [facility] [address] [place] [place] [address] Aug, Type 2 diabetes mellitus with hyperglycemia, unspecified whether superintendent [employer] insulin use E11.65 [facility] [address] [place] [address] Aug, [facility] [address] [place] [address] Aug, [address] [address] Aug, Type 2 diabetes mellitus with hyperglyce nirali, unspecified whether superintendent [employer] insulin use E11.[address] [address] Aug, Schizophrenia F20.[address] [address] Aug, Rash R21 [facility] [address] [place] [address] Aug, Type 2 diabetes mellitus without complication, without long-term current use of insulin E11.[address] [address] Aug, [address] [address] Aug, Type 2 diabetes mellitus without complic ation, without long-term current use of insulin E11.9 ; Rash R21 and Intellectual disability F79 [address] [address] Aug, [address] [address] July, [facility] [address] [facility] [id number] [address] [place] [address] July, [address] [address] July, Pure hypercholesterolemia E78.00 ; Chron ic kidney disease, stage III (moderate) N18.3 ; Moderate episode of recurrent major depressive disorder F33.1 ; Essential hypertension, benign I10 ; Type 2 diabetes mellitus with diabetic chronic kidney disease E11.22 and Schizophrenia F20.[address] [address] July, [address] [address] July, Mild intellectual disability F70 and Typ e 2 diabetes mellitus with diabetic chronic kidney disease E11.[address] [address] July, Mild intellectual disability F70 [address] [address] July, Contact dermatitis and other eczema, due to unspecified cause L25.9 and Chewing tobacco nicotine dependence, uncomplicated F17.[address] [address] July, [facility] [address] [address] [id number] [address] Jul, Oral health maintenance stat us requiring routine preventive dental care K08.[address] [address] May, [address] [address] May, Acute non-recurrent maxillary sinusitis J01.00 ; Type 2 diabetes mellitus with diabetic chronic kidney disease E11.22 ; Pure hypercholesterolemia E78.00 ; Benign essential hypertension I10 ; Moderate episode of recurrent major depressive disorder F33.1 and Mild intellectual disability F70 [facility] [address] [facility] [id number] [address] [place] [address] May, [address] [address] May, Vasculogenic erectile dysfunction, unspe cified vasculogenic erectile dysfunction type N52.9 and Type 2 diabetes mellitus without complication, unspecified whether mcc insulin use E11.9 [facility] [address] [place] [id number] [address] [place] [address] May, [address] [address] May, [address] [place] [phone] Apr, 9 Dental examination Z01.20 and Oral health maintenance status requiring routine preventive dental care K08.9 [facility] [address] [facility] [id number] [address] [place] [phone] Mar, [facility] [address] [facility] [id number] [address] [place] [address] Mar, [facility] [address] [facility] [id number] [address] [place] [address] Mar, [facility] [address] [facility] [id number] [address] [place] [address] Jan, [facility] [address] [id number] [address] [place] [phone] Dec, Dental plaque K03.6 and Enco unter for prophylactic administration of fluoride Z29.3 [facility] [address] [place] [address] Aug, 18 Encounter for dental exam and cleaning w/o abnormal findings Z01.20 [facility] [address] [id number] [place] [address] [phone] Jul, Dental caries K02.9 and [place] al examination Z01.20 [facility] [address] [id number] [place] [address] [phone] May, Encounter for dental exam an d cleaning w/o abnormal findings Z01.20 [facility] [address] [id number] [address] [place] [address] [phone] May, Dental examination Z01.20 [facility] [address] [id number] [address] [place] [address] [phone] Mar, Encounter for dental exam an d cleaning w/o abnormal findings Z01.20 [facility]ita [address] [place] [address] Mar, 17 Dental examination Z01.20 [facility] [address] [id number] [address] [place] [address] [phone] Dec, Encounter for dental examina tion and cleaning with abnormal findings Z01.21 [facility] [address] [id number] [address] [place] [address] [phone] Aug, Encounter for dental examina tion and cleaning without abnormal findings Z01.20 [facility] [address] [id number] [phone] Aug, Dental examination Z01.20 [facility] [address] [id number] [address] [place] [address] [phone] Apr, Encounter for dental examina tion and cleaning without abnormal findings Z01.[address] [id number] [phone] Apr, Dental examination Z01.20 [facility] [address] [id number] [address] [place] [address] [phone] Dec, Encounter for dental examina tion and cleaning without abnormal findings Z01.20 [facility] [address] [facility] [address] [id number] [phone] Oct, Dental examination Z01.20 [facility] [address] [id number][place] [phone] Aug, Encounter for dental examination Z01.20 [facility] W[facility] [address] [facility] [address] [id number] [phone] July, Dental examination Z01.20 [facility] [address] [id number] [address] [place] [address] [phone] July, Encounter for dental examina tion and cleaning without abnormal findings Z01.20 [facility] [address] [id number] [address] [place] [address] [phone] July, Dental examination Z01.20 [facility] [address] [id number] [address] [place] [address] [phone] May, Dental examination Z01.20 [facility] [address] [id number] [address] [place] [address] [phone] Apr, Encounter for dental examina tion Z01.20 [facility] [address] [id number] [address] [place] [address] [phone] Jan, Dental examination Z01.20 [facility] [address] [id number] [address] [place] [address] [phone] Dec, Dental examination V72.2 [facility] [address] [id number] [address] [place] [address] Aug, [facility] [address] [id number] [address] [place] [address] [phone] July, Dental examination V72.2 [facility] [address] [facility] [id number] [address] [place] [address] May, IMMUNIZATIONS No Known Immunizations SOCIAL HISTORY Never Assessed REASON FOR VISIT medication question PLAN OF CARE VITAL SIGNS MEDICATIONS Unknown Medications RESULTS No Results PROCEDURES No Known procedures INSTRUCTIONS MEDICATIONS ADMINISTERED No Known Medications MEDICAL (GENERAL) HISTORY Type Description Date Medical History Type 2 diabetes mellitus Medical History Schizophrenia Medical History Asthma Medical History Hypertension Medical History Esophageal reflux Medical History Hypercholesterolemia Medical History Intellectual disability Surgical History No know Surgical history
--- OUTSIDE RECORDS SUMMARY | 2019-10-16 14:33 | XMS REPORT | Clinical Summary ---
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 INSULIN GLARGINE -LIXISENATIDE 99310710728 Active Archana Henderson RIP TAILER Active VENTOLIN HFA 108 (90 BASE) MCG/ACT INHALATION AEROSOL SOLUTION Take/use as needed. ALBUTEROL SULFATE 15162079208 Active Jazmin hagen LPN Active TRIAMCINOLONE ACETONIDE 0.1 % EXTERNAL CREAM Take/use as needed. 20 19/08/26 TRIAMCINOLONE ACETONIDE 47997245087 Active Jazmin Stevens LPN Active EQL MILK OF MAGNESIA SUSPENSION Take/use as needed. MAGNESIUM HYDROXIDE SUSP 71677353825 Active Jazmin Stevens LPN Activ e ALAVERT 10 MG ORAL TABLET DISINTEGRATING Take one by mouth daily prn LORATADINE 85026415918 Active Jazmin Stevens LPN Act raymond IBU 600 MG ORAL TABLET 1 tab three times daily as needed mild pain IBUPROFEN 85592549074 Active Jazmin Stevens LPN Active [facility] TUSSIN DM 10-100 MG/5ML ORAL LIQUID 2 tsp every 6 hrs prn co ugh DEXTROMETHORPHAN-GUAIFENESIN 91562692381 Active Jazmin Stevens LPN Active GLUCAGON EMERGENCY 1 MG INJECTION KIT as directed for severe hypoglycemia GLUCAGON (RDNA) 06122693297 Active Jazmin Stevens LPN Active [facility] EAR DROPS 6.5 % OTIC SOLUTION 5 drops both ears for wax build up prn CARBAMIDE PEROXIDE 14485331488 Active Jazmin Walter PN Active MYLANTA MAXIMUM STRENGTH SUSPENSION Take/use as needed. ALUM & MAG HYDROXIDE-SIMETH SUSP 83305057203 Active Jazmin Stevens LPN Active ACETAMINOPHEN 325 MG ORAL TABLET Take/use as needed. ACETAMINOPHEN 45760549618 Active Jazmin Stevens LPN Active THEREMS-M ORAL TABLET Take one by mouth daily MULTIPLE VITAMINS-MINERALS 50701374829 Active Jazmin Stevens LPN Ac tive QUETIAPINE FUMARATE 50 MG ORAL TABLET 2 every am and 1 tab at noon for bipolar disorder QUETIAPINE FUMARATE 07221076038 Active Siri Stevens LPN Active K-TAB 10 MEQ ORAL TABLET EXTENDED RELEASE one tab every other day 2 POTASSIUM CHLORIDE 15309545029 Active Jazmin Stevens LPN A ctive PROTONIX 40 MG ORAL TABLET DELAYED RELEASE Take one by mouth daily PANTOPRAZOLE SODIUM 18373717985 Active Jazmin Stevens LPN Active OLANZAPINE 20 MG ORAL TABLET Take one by mouth daily OLANZAPINE 77248915228 Active Jazmin Stevens LPN Active OLANZAPINE 10 MG ORAL TABLET take with 20mg tab to equal 30m g per day OLANZAPINE 15817350252 Active Jazmin Rodney WISE Active OCUVITE-LUTEIN ORAL TABLET Take one by mouth daily MULTIPLE VITAMINS-MINERALS 12624450040 Active Jazmin Casillasjayson WISE Ac tive STARLIX 120 MG ORAL TABLET three times daily before meals 7 NATEGLINIDE 32715329151 Active Jazmin Stevens LPN Active LOPRESSOR 50 MG ORAL TABLET Take one by mouth daily METOPROLOL TARTRATE 45457220825 Active Jazmin Rodney WISE Active METFORMIN HCL 1000 MG ORAL TABLET by mouth twice a day METFORMIN HCL 71761251831 Active Jazmin Rodney WISE Active LOSARTAN POTASSIUM 100 MG ORAL TABLET Take one by mouth daily 08/26 LOSARTAN POTASSIUM 47120462304 Active Jazmin Rodney WISE A ctive LITHIUM CARBONATE 300 MG ORAL CAPSULE by mouth twice a day LITHIUM CARBONATE 32290439385 Active Jazmin Stevens LPN Active FUROSEMIDE 20 MG ORAL TABLET one tab by mouth every other day 2019 FUROSEMIDE 68768332003 Active Jazmin Rodney WSIE Active FLONASE SENSIMIST 27.5 MCG/SPRAY NASAL SUSPENSION two sprays ea nostril once daily FLUTICASONE FUROATE 18560669942 Active Jazmin Rodney WISE Active COLACE 100 MG ORAL CAPSULE Take one by mouth daily DOCUSATE SODIUM 62631208667 Active Jazmin Stevens LPN Active BUSPIRONE HCL 10 MG ORAL TABLET Take one by mouth 3 ti mes daily, morning, afternoon and evening BUSPIRONE HCL 69519023485 Active Jazmin Rodney WISE Active ABILIFY 20 MG ORAL TABLET Take one by mouth daily ARIPIPRAZOLE 11423189012 Active Jazmin Stevens LPN Active NORVASC 5 MG ORAL TABLET Take one by mouth daily AMLODIPINE BESYLATE 83414336415 Active Jazmin Rodney WISE Active Vital Signs [...] mg/dL Encounters Code Encounter Date Provider Facility [id number] Vst-New Level IV 17:35:56 C FRANK Henderson RIP TAILER [facility]
--- OUTSIDE RECORDS SUMMARY | 2019-10-16 14:33 | XMS REPORT ---
Author Author Tenzin PAINTING Organization [facility] Address [address] [place] [address] Phone Unavailable Care Team Providers Care Fire Sprinkler Designer Name Role Phone CHANDU PAINTING Unavailable Unavailable PROBLEMS Unknown Problems ALLERGIES No Known Allergies ENCOUNTERS Encounter Location Date Diagnosis [facility] [address] [place] [address] Aug, Encounter for dental exam and cleaning w/o abnormal findings Z01.20 [facility] [id number] [place] [address] [phone] Jul, Dental caries K02.9 and Paul al examination Z01.20 [facility] [address] [id number] [place] [address] [phone] May, Encounter for dental exam an d cleaning w/o abnormal findings Z01.20 [facility] [address] [id number] [address] [place] [address] [phone] May, Dental examination Z01.20 [facility] [address] [id number] [address] [place] [address] [phone] Mar, Encounter for dental exam an d cleaning w/o abnormal findings Z01.20 [facility] [address] [place] [address] Mar, Dental examination Z01.20 [facility] [address] [id number] [address] [place] [address] [phone] Dec, Encounter for dental examina tion and cleaning with abnormal findings Z01.21 [facility] [address] [id number] [address] [place] [address] [phone] Aug, Encounter for dental examina tion and cleaning without abnormal findings Z01.[address] [facility] [address] [id number] [phone] Aug, Dental examination Z01.20 [facility] [address] [id number] [address] [place] [address] [phone] Apr, Encounter for dental examina tion and cleaning without abnormal findings Z01.[address] [id number] [phone] Apr, Dental examination Z01.20 [facility] [address] [id number] [address] [place] [address] [phone] Dec, Encounter for dental examina tion and cleaning without abnormal findings Z01.[address] [id number] [phone] Oct, [facility] [address] [id number] [phone] Aug, [facility] for dental examination [facility]01.20 [facility] [address] [id number] [phone] July, Dental examination Z01.20 [facility] [address] [id number] [address] [place] [address] [phone] July, Encounter for dental examina tion and cleaning without abnormal findings Z01.20 [facility] [address] [id number] [address] [place] [address] [phone] July, Dental examination Z01.20 [facility] [address] [id number] [address] [place] [address] [phone] May, Dental examination Z01.20 [facility] [address] [id number] [address] [place] [address] [phone] Apr, Encounter for dental examina tion Z01.20 [facility] [address] [id number] [address] [place] [address] [phone] Jan, Dental examination Z01.20 [facility] [address] [id number] [address] [place] [address] [phone] Dec, Dental examination V72.2 [facility] [address] [id number] [address] [place] [address] [phone] July, Dental examination V72.2 IMMUNIZATIONS No Known Immunizations SOCIAL HISTORY Never Assessed REASON FOR VISIT ADULT OUTREACH [facility] PLAN OF CARE Activity Details Follow Up PATIENT HAS CLINIC APPOINTME NT WITH DR BETANCUR Reason:TE #32 VITAL SIGNS MEDICATIONS Medication Instructions Dosage Frequency Start Date End Date Duration S lilian Abilify 5 MG Orally Once a day 1 tablet 24h Active Olanzapine 10 MG Orally Once a day 1 tablet 24h Active Therems Orally Once a day 1 tablet 24h Activ e Nateglinide 60 MG Orally Three times a day 1 tablet before meals 8h Active PreviDent 1.1 % Active Fluticasone Propionate 50 MCG/ACT Nasally Once a day 1 spray in each nostril 24h Active Docusate Sodium 50 MG Orally Once a day 1 capsule as needed 24h Active Acetaminophen 80 MG/ML A ctive BusPIRone HCl 5 MG Orally Three times a day 1 tablet 8h Active Furosemide 10 MG/ML Orally Twice a day 1 ml 12h Active Amlodipine Besylate 5 MG Orally Once a day 1 tablet 24h Active Metformin HCl 1000 MG Orally Twice a day 1 tablet with meals 12h Active Quetiapine Fumarate 50 MG Orally Once a day 1 tablet at bedtime 24h Active Ocuvite Active nexium 1 tab Active Losartan Potassium 100 MG Orally Once a day 1 tablet 24h Active Milk of Magnesia 7.75 % Orally Four times a day 5 ml as needed 6h Active Almacone 200-200-20 MG/5ML Orally Four times a day 10 ml as needed 6h Active Combivent 18-103 MCG/ACT Inhalation Four times a day 2 puffs 6h Active Metoprolol Succinate 50 MG Active Ventolin HFA 90 MCG/ACT Inhalation every 4 hrs 2 puffs as needed 4h Active Tempe Carbonate 300 MG Orally Three times a day 1 capsule 8h Active Docusate Sodium-Casanthranol 100-30 MG Active Albuterol Sulfate (2.5 MG/3ML) 0.083% Inhalation Three times a day 3 m l 8h Active Miconazole 50 MG Bucally Once a day 1 tablet 24h Active Loratadine 10 MG Orally Once a day 10 ml 24h Active Ibuprofen 200 MG Orally every 6 hrs 1 capsule as needed 6h Active RESULTS No Results PROCEDURES Procedure Date Ordered Result Body Site PROPHYLAXIS - ADULT June 20, 2017 TOPICAL FLUORIDE VARNISH June 20, 2017 INSTRUCTIONS MEDICATIONS ADMINISTERED No Known Medications MEDICAL (GENERAL) HISTORY Type Description Date Medical History High BP Medical History Diabetes Medical History Asthma Medical History Mild intellect disability Medical History Schizophrenia Medical History Pedal Edema
--- OUTSIDE RECORDS SUMMARY | 2019-10-16 14:33 | XMS REPORT ---
Author Tenzin Buck [facility] Address [address] [place] [address] Phone Unavailable Care Team Providers Care Nursery Nurse Name Role Phone CHANDU PAINTING Unavailable Unavailable PROBLEMS Type Condition ICD9-CM Code [id number] Code Onset Dates Condition S tatus SNOMED Code Problem Encounter for dental examination Z01.20 Active [id number] ALLERGIES Substance Reaction Event Type Date Status N.K.D.A. Unknown Non Drug Allergy Apr, Unknown SOCIAL HISTORY No smoking Hx information available PLAN OF CARE Activity Details Follow Up 3 Months Reason:ON SITE REST ORATIVE VITAL SIGNS MEDICATIONS Unknown Medications RESULTS No Results PROCEDURES Procedure Date Ordered Related Diagnosis Body Site PROPHYLAXIS - ADULT Apr 07, 2016 TOPICAL FLUORIDE VARNISH Apr 07, 2016 IMMUNIZATIONS No Known Immunizations
--- OUTSIDE RECORDS SUMMARY | 2019-10-16 14:33 | XMS REPORT ---
Author Author Tenzin JIANG [facility] [address] Address [address] [place] [address] Care Team Providers Care Pipeline Systems Operator Name Role Phone FRANCA JIANG Unavailable PROBLEMS Unknown Problems ALLERGIES No Known Allergies ENCOUNTERS Encounter Location Date Diagnosis [facility] [address] [place] [address] Aug, 18 Encounter for dental exam and cleaning w/o abnormal findings Z01.20 [facility] [address] [id number] [address] [place] [address] [phone] Jul, Dental caries K02.9 and [place] al examination Z01.20 [facility] [id number] [place] [address] [phone] May, Encounter for dental exam an d cleaning w/o abnormal findings Z01.20 [facility] [address] [id number] [address] [place] [address] [phone] May, Dental examination Z01.20 [facility] [address] [id number] [address] [place] [address] [phone] Mar, Encounter for dental exam an d cleaning w/o abnormal findings Z01.20 [facility] [address] [place] [address] Mar, 17 Dental examination Z01.20 [facility] [address] [id number] [address] [place] [address] [phone] Dec, Encounter for dental examina tion and cleaning with abnormal findings Z01.21 [facility] [address] [id number] [address] [place] [address] [phone] Aug, Encounter for dental examina tion and cleaning without abnormal findings Z01.[address] [id number] [phone] Aug, Dental examination [facility]01.20 [facility] [address] [id number] [address] [place] [address] [phone] Apr, Encounter for dental examina tion and cleaning without abnormal findings Z01.[address] [id number] [phone] Apr, Dental examination Z01.20 [facility] [address] [id number] [address] [place] [address] [phone] Dec, Encounter for dental examina tion and cleaning without abnormal findings Z01.20 [facility] [address] [id number] [phone] Oct, Dental examination Z01.20 [facility] [address] [id number] [phone] Aug, Encounter for dental examination Z01.20 [facility] [address] [id number] [phone] July, Dental examination Z01.20 [facility] [address] [id number] [address] [place] [address] [phone] July, Encounter for dental examina tion and cleaning without abnormal findings Z01.20 [facility] [address] [id number] [address] [place] [address] [phone] July, Dental examination Z01.20 [facility] [address] [id number] [address] [place] [address] [phone] May, Dental examination Z01.20 [facility] [address] [id number] [address] [place] [address] [phone] Apr, Encounter for dental examina tion Z01.20 [facility] [address] [id number] [address] [place] [address] [phone] Jan, Dental examination Z01.20 [facility] [address] [id number] [address] [place] [address] [phone] Dec, Dental examination V72.2 [facility] [address] [id number] [address] [place] [phone] July, Dental examination V72.2 IMMUNIZATIONS No Known Immunizations SOCIAL HISTORY Never Assessed REASON FOR VISIT Adult outreach [facility] PLAN OF CARE Activity Details Follow Up 3 Months Reason:on site reca ll VITAL SIGNS MEDICATIONS Medication Instructions Dosage Frequency Start Date End Date Duration S tatus Fluticasone Propionate 50 MCG/ACT Nasally Once a day 1 spray in each nostril 24h Active Docusate Sodium-Casanthranol 100-30 MG Not-Taking Crowell Carbonate 300 MG Orally Three times a day 1 capsule 8h Active Olanzapine 10 MG Orally Once a day 1 tablet 24h Active Milk of Magnesia 7.75 % Orally Four times a day 5 ml as needed 6h Active Metoprolol Succinate 50 MG Active nexium 1 tab Not-Taking GuaiFENesin DM Active Ocuvite Active Albuterol Sulfate (2.5 MG/3ML) 0.083% Inhalation Three times a day 3 m l 8h Active BusPIRone HCl 5 MG Orally Three times a day 1 tablet 8h Active Losartan Potassium 100 MG Orally Once a day 1 tablet 24h Active Abilify 5 MG Orally Once a day 1 tablet 24h Not-Taking Miconazole 50 MG Bucally Once a day 1 tablet 24h Not-Taking Therems Orally Once a day 1 tablet 24h Not-T aking Combivent 18-103 MCG/ACT Inhalation Four times a day 2 puffs 6h Not-Taking Loratadine 10 MG Orally Once a day 10 ml 24h Active Nateglinide 60 MG Orally Three times a day 1 tablet before meals 8h Not-Taking Aripiprazole Active PreviDent 1.1 % Not-Taki ng Amlodipine Besylate 5 MG Orally Once a day 1 tablet 24h Active Metformin HCl 1000 MG Orally Twice a day 1 tablet with meals 12h Active Quetiapine Fumarate 50 MG Orally Once a day 1 tablet at bedtime 24h Not-Taking Acetaminophen 80 MG/ML A ctive Loratadine Active Ibuprofen 200 MG Orally every 6 hrs 1 capsule as needed 6h Active Almacone 200-200-20 MG/5ML Orally Four times a day 10 ml as needed 6h Active Esomeprazole Magnesium A ctive Ventolin HFA 90 MCG/ACT Inhalation every 4 hrs 2 puffs as needed 4h Not-Taking Docusate Sodium 50 MG Orally Once a day 1 capsule as needed 24h Active potassium Active Furosemide 10 MG/ML Orally Twice a day 1 ml 12h Active RESULTS No Results PROCEDURES Procedure Date Ordered Result Body Site PERIODIC ORAL EXAMINATION September 26, 2017 PROPHYLAXIS - ADULT September 26, 2017 INSTRUCTIONS MEDICATIONS ADMINISTERED No Known Medications MEDICAL (GENERAL) HISTORY Type Description Date Medical History High BP Medical History Diabetes Medical History Asthma Medical History Mild intellect disability Medical History Schizophrenia Medical History Pedal Edema
--- OUTSIDE RECORDS SUMMARY | 2019-10-16 14:33 | XMS REPORT | Clinical Summary ---
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 INSULIN GLARGINE -LIXISENATIDE 68166999194 Active Archana Henderson LEAD FURNACE OPERATOR Active VENTOLIN HFA 108 (90 BASE) MCG/ACT INHALATION AEROSOL SOLUTION Take/use as needed. ALBUTEROL SULFATE 65483085561 Active Jazmin hagen LPN Active TRIAMCINOLONE ACETONIDE 0.1 % EXTERNAL CREAM Take/use as needed. 20 19/08/26 TRIAMCINOLONE ACETONIDE 12482313116 Active Jazmin Stevens LPN Active EQL MILK OF MAGNESIA SUSPENSION Take/use as needed. MAGNESIUM HYDROXIDE SUSP 47598118545 Active Jazmin Stevens LPN Activ e ALAVERT 10 MG ORAL TABLET DISINTEGRATING Take one by mouth daily prn LORATADINE 33607457300 Active Jazmin Stevens LPN Act raymond IBU 600 MG ORAL TABLET 1 tab three times daily as needed mild pain IBUPROFEN 83617736844 Active Jazmin Stevens LPN Active [facility] TUSSIN DM 10-100 MG/5ML ORAL LIQUID 2 tsp every 6 hrs prn co ugh DEXTROMETHORPHAN-GUAIFENESIN 80981347748 Active Jazmin Stevens LPN Active GLUCAGON EMERGENCY 1 MG INJECTION KIT as directed for severe hypoglycemia GLUCAGON (RDNA) 21054318462 Active Jazmin Stevens LPN Active [facility] EAR DROPS 6.5 % OTIC SOLUTION 5 drops both ears for wax build up prn CARBAMIDE PEROXIDE 12608542709 Active Jazmin Walter PN Active MYLANTA MAXIMUM STRENGTH SUSPENSION Take/use as needed. ALUM & MAG HYDROXIDE-SIMETH SUSP 91244001281 Active Jazmin Stevens LPN Active ACETAMINOPHEN 325 MG ORAL TABLET Take/use as needed. ACETAMINOPHEN 10696510516 Active Jazmin Stevens LPN Active THEREMS-M ORAL TABLET Take one by mouth daily MULTIPLE VITAMINS-MINERALS 67371319229 Active Jazmin Stevens LPN Ac tive QUETIAPINE FUMARATE 50 MG ORAL TABLET 2 every am and 1 tab at noon for bipolar disorder QUETIAPINE FUMARATE 43796869431 Active Siri Stevens LPN Active K-TAB 10 MEQ ORAL TABLET EXTENDED RELEASE one tab every other day 2 POTASSIUM CHLORIDE 34975194075 Active Jazmin Stevens LPN A ctive PROTONIX 40 MG ORAL TABLET DELAYED RELEASE Take one by mouth daily PANTOPRAZOLE SODIUM 63149705007 Active Jazmin Stevens LPN Active OLANZAPINE 20 MG ORAL TABLET Take one by mouth daily OLANZAPINE 41425063190 Active Jazmin Stevens LPN Active OLANZAPINE 10 MG ORAL TABLET take with 20mg tab to equal 30m g per day OLANZAPINE 12871114028 Active Jazmin Rodney WISE Active OCUVITE-LUTEIN ORAL TABLET Take one by mouth daily MULTIPLE VITAMINS-MINERALS 41160163349 Active Jazmin Casillasjayson WISE Ac tive STARLIX 120 MG ORAL TABLET three times daily before meals 7 NATEGLINIDE 30525148015 Active Jazmin Stevens LPN Active LOPRESSOR 50 MG ORAL TABLET Take one by mouth daily METOPROLOL TARTRATE 59148142165 Active Jazmin Rodney WISE Active METFORMIN HCL 1000 MG ORAL TABLET by mouth twice a day METFORMIN HCL 70545970579 Active Jazmin Rodney WISE Active LOSARTAN POTASSIUM 100 MG ORAL TABLET Take one by mouth daily 08/26 LOSARTAN POTASSIUM 46590983941 Active Jazmin Rodney WISE A ctive LITHIUM CARBONATE 300 MG ORAL CAPSULE by mouth twice a day LITHIUM CARBONATE 27677371358 Active Jazmin Stevens LPN Active FUROSEMIDE 20 MG ORAL TABLET one tab by mouth every other day 2019 FUROSEMIDE 30947098853 Active Jazmin Rodney WISE Active FLONASE SENSIMIST 27.5 MCG/SPRAY NASAL SUSPENSION two sprays ea nostril once daily FLUTICASONE FUROATE 57681753605 Active Jazmin Rodney WISE Active COLACE 100 MG ORAL CAPSULE Take one by mouth daily DOCUSATE SODIUM 07995111994 Active Jazmin Stevens LPN Active BUSPIRONE HCL 10 MG ORAL TABLET Take one by mouth 3 ti mes daily, morning, afternoon and evening BUSPIRONE HCL 10566013239 Active Jazmin Rodney WISE Active ABILIFY 20 MG ORAL TABLET Take one by mouth daily ARIPIPRAZOLE 91156878935 Active Jazmin Stevens LPN Active NORVASC 5 MG ORAL TABLET Take one by mouth daily AMLODIPINE BESYLATE 97030609851 Active Jazmin Rodney WISE Active Vital Signs [...] mg/dL Encounters Code Encounter Date Provider Facility [id number] Vst-New Level IV 17:35:56 C FRANK Henderson LEAD FURNACE OPERATOR [facility]
--- OUTSIDE RECORDS SUMMARY | 2019-10-16 14:33 | XMS REPORT ---
Author Tenzin Buck Organization [facility] Address [address] [place] [address] Phone Unavailable Care Team Providers Care Ship Runner Name Role Phone CHANDU PAINTING Unavailable Unavailable PROBLEMS Type Condition ICD9-CM Code [id number] Code Onset Dates Condition S tatus SNOMED Code Problem Encounter for dental examination Z01.20 Active 119162380 ALLERGIES No Known Allergies SOCIAL HISTORY Never Assessed PLAN OF CARE Activity Details Follow Up OVI/3 Months Reason:ON SITE RESTORATIVE/RECALL VITAL SIGNS MEDICATIONS Medication Instructions Dosage Frequency Start Date End Date Duration S tatus BusPIRone HCl 5 MG Orally Three times a day 1 tablet 8h Active Combivent 18-103 MCG/ACT Inhalation Four times a day 2 puffs 6h Active Docusate Sodium-Casanthranol 100-30 MG Active nexium 1 tab Active Therems Orally Once a day 1 tablet 24h Activ e Docusate Sodium 50 MG Orally Once a day 1 capsule as needed 24h Active Fluticasone Propionate 50 MCG/ACT Nasally Once a day 1 spray in each nostril 24h Active Milk of Magnesia 7.75 % Orally Four times a day 5 ml as needed 6h Active Furosemide 10 MG/ML Orally Twice a day 1 ml 12h Active Albuterol Sulfate (2.5 MG/3ML) 0.083% Inhalation Three times a day 3 m l 8h Active Amlodipine Besylate 5 MG Orally Once a day 1 tablet 24h Active PreviDent 1.1 % Active Loratadine 10 MG Orally Once a day 10 ml 24h Active Ocuvite Active Metoprolol Succinate 50 MG Active Losartan Potassium 100 MG Orally Once a day 1 tablet 24h Active Ibuprofen 200 MG Orally every 6 hrs 1 capsule as needed 6h Active Almacone 200-200-20 MG/5ML Orally Four times a day 10 ml as needed 6h Active Metformin HCl 1000 MG Orally Twice a day 1 tablet with meals 12h Active Nateglinide 60 MG Orally Three times a day 1 tablet before meals 8h Active Acetaminophen 80 MG/ML A ctive Miconazole 50 MG Bucally Once a day 1 tablet 24h Active Ventolin HFA 90 MCG/ACT Inhalation every 4 hrs 2 puffs as needed 4h Active Olanzapine 10 MG Orally Once a day 1 tablet 24h Active Abilify 5 MG Orally Once a day 1 tablet 24h Active Quetiapine Fumarate 50 MG Orally Once a day 1 tablet at bedtime 24h Active [place] Carbonate 300 MG Orally Three times a day 1 capsule 8h Active RESULTS No Results PROCEDURES Procedure Date Ordered Result Body Site PROPHYLAXIS - ADULT August 31, 2016 IMMUNIZATIONS No Known Immunizations MEDICAL (GENERAL) HISTORY Type Description Date Medical History High BP Medical History Diabetes Medical History Asthma Medical History Mild intellect disability Medical History Schizophrenia Medical History Pedal Edema
--- OUTSIDE RECORDS SUMMARY | 2019-10-16 14:34 | XMS REPORT ---
Author Author Tenzin BETANCUR Organization [facility] Address [address] [place] [address] Care Team Providers Care Physical Design Engineer Name Role Phone RAVEN BETANCUR Unavailable PROBLEMS Type Condition ICD9-CM Code PHI32-QL Code Onset Dates Condition S tatus SNOMED Code Problem Encounter for dental examination Z01.20 Active [id number] ALLERGIES Unknown Allergies SOCIAL HISTORY No smoking Hx information available PLAN OF CARE Activity Details Follow Up prn Reason:restorative VITAL SIGNS MEDICATIONS Unknown Medications RESULTS No Results PROCEDURES Procedure Date Ordered Related Diagnosis Body Site PERIODIC ORAL EXAMINATION Apr 06, 2016 BITEWINGS - FOUR FILMS Apr 06, 2016 IMMUNIZATIONS No Known Immunizations
--- OUTSIDE RECORDS SUMMARY | 2019-10-16 14:34 | XMS REPORT ---
Author Author Tenzin SHEETS [facility] eClinicalWorks Address Unknown Phone Unavailable Care Team Providers Care System Trainer Name Role Phone NATHALIA SHEETS CP Unavailable Allergies No Known Allergies Problems Problem Type Condition ICD-9 Code Onset Dates Condition Statu s Assessment Dental examination V72.2 Active Medications No Known Medications Procedures Procedure Coding System Code Date Periodontal maint procedures CPT-4 D4910 Dec TOPICAL FLUORIDE VARNISH CPT-4 D1206 Dec Results No Known Results Summary Purpose eClinicalWorks Submission
--- OUTSIDE RECORDS SUMMARY | 2019-10-16 14:34 | XMS REPORT ---
Author Author Tenzin BETANCUR Organization [facility] Address [address] [place] [address] Care Team Providers Care Combo Welder Name Role Phone RAVEN BETANCUR Unavailable PROBLEMS Type Condition ICD9-CM Code REX66-RY Code Onset Dates Condition S tatus SNOMED Code Problem Encounter for dental examination Z01.20 Active 992691527 Assessment Dental examination Z01.20 23 Nov, 2015 Active [id number] ALLERGIES Unknown Allergies SOCIAL HISTORY No smoking Hx information available PLAN OF CARE VITAL SIGNS MEDICATIONS Unknown Medications RESULTS No Results PROCEDURES Procedure Date Ordered Related Diagnosis Body Site AMALGAM-ONE SURFACE PRIMARY/PERM Nov 23, 2015 AMALGAM-ONE SURFACE PRIMARY/PERM Nov 23, 2015 RESIN COMPOS - 2 SURFACES ANTERIOR Nov 23, 2015 RESIN COMPOS - ONE SURFACE ANTERIOR Nov 23, 2015 Dental Outreach adjust balance Nov 23, 2015 IMMUNIZATIONS No Known Immunizations
--- OUTSIDE RECORDS SUMMARY | 2019-10-16 14:34 | XMS REPORT | Continuity of Care Document ---
Author Organization Unknown Address Unknown Phone Unavailable Allergies There is no data. Medications There is no data. 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 Results Test Result Range LIPID PANEL - 08/23/18 09:02 CHOLESTEROL, TOTAL 184 mg/dL <200 HDL CHOLESTEROL 57 mg/dL >40 TRIGLYCERIDES 156 mg/dL <150 LDL-CHOLESTEROL 101 mg/dL (calc) NRG CHOL/HDLC RATIO 3.2 (calc) <5.0 NON HDL CHOLESTEROL 127 mg/dL (calc) <13 0 CMP - 08/23/18 09:02 GLUCOSE 459 mg/dL 65-99 UREA NITROGEN (BUN) 19 mg/dL 7-25 CREATININE 0.78 mg/dL 0.70-1.33 eGFR NON-AFR. [place] 105 mL/min/1.73m2 > OR = 60 eGFR 122 mL/min/1.73m2 > OR = 60 BUN/CREATININE RATIO NOT APPLICABLE (calc) 6-22 SODIUM 139 mmol/L 135-146 POTASSIUM 4.2 mmol/L 3.5-5.3 CHLORIDE 100 mmol/L 98-110 CARBON DIOXIDE 27 mmol/L 20-32 CALCIUM 9.8 mg/dL 8.6-10.3 PROTEIN, TOTAL 6.9 g/dL 6.1-8.1 ALBUMIN 4.5 g/dL 3.6-5.1 GLOBULIN 2.4 g/dL (calc) 1.9-3.7 ALBUMIN/GLOBULIN RATIO 1.9 (calc) 1.0-2. 5 BILIRUBIN, TOTAL 0.5 mg/dL 0.2-1.2 ALKALINE PHOSPHATASE 89 U/L 40-115 AST 16 U/L 10-35 ALT 20 U/L 9-46 CBC - 08/23/18 09:02 WHITE BLOOD CELL COUNT 4.5 Thousand/uL 3 .8-10.8 RED BLOOD CELL COUNT 4.68 Million/uL 4.2 0-5.80 HEMOGLOBIN 15.0 g/dL 13.2-17.1 HEMATOCRIT 44.8 % 38.5-50.0 MCV 95.7 fL 80.0-100.0 MCH 32.1 pg 27.0-33.0 MCHC 33.5 g/dL 32.0-36.0 RDW 12.0 % 11.0-15.0 PLATELET COUNT 273 Thousand/uL 140-400 MPV 10.0 fL 7.5-12.5 ABSOLUTE NEUTROPHILS 2898 cells/uL 1500- 7800 ABSOLUTE LYMPHOCYTES 1107 cells/uL 850-3 900 ABSOLUTE MONOCYTES 387 cells/uL 200-950 ABSOLUTE EOSINOPHILS 90 cells/uL 15-500 ABSOLUTE BASOPHILS 18 cells/uL 0-200 NEUTROPHILS 64.4 % NRG LYMPHOCYTES 24.6 % NRG MONOCYTES 8.6 % NRG EOSINOPHILS 2.0 % NRG BASOPHILS 0.4 % NRG LITHIUM (ESKALITH(R)), SERUM - 08/23/18 09:02 LITHIUM 0.3 mmol/L 0.6-1.2 A1C - 08/23/18 09:02 HEMOGLOBIN A1c 12.8 % of total Hgb <5.7 LITHIUM (ESKALITH(R)), SERUM - 09/19/18 09:24 LITHIUM 0.3 mmol/L 0.6-1.2 CBC - 11/26/18 08:34 WHITE BLOOD CELL COUNT 4.3 Thousand/uL 3 .8-10.8 RED BLOOD CELL COUNT 4.17 Million/uL 4.2 0-5.80 HEMOGLOBIN 13.4 g/dL 13.2-17.1 HEMATOCRIT 41.0 % 38.5-50.0 MCV 98.3 fL 80.0-100.0 MCH 32.1 pg 27.0-33.0 MCHC 32.7 g/dL 32.0-36.0 RDW 12.6 % 11.0-15.0 PLATELET COUNT 276 Thousand/uL 140-400 MPV 9.5 fL 7.5-12.5 ABSOLUTE NEUTROPHILS 2365 cells/uL 1500- 7800 ABSOLUTE LYMPHOCYTES 1329 cells/uL 850-3 900 ABSOLUTE MONOCYTES 378 cells/uL 200-950 ABSOLUTE EOSINOPHILS 189 cells/uL 15-500 ABSOLUTE BASOPHILS 39 cells/uL 0-200 NEUTROPHILS 55 % NRG LYMPHOCYTES 30.9 % NRG MONOCYTES 8.8 % NRG EOSINOPHILS 4.4 % NRG BASOPHILS 0.9 % NRG A1C - 11/26/18 08:34 HEMOGLOBIN A1c 7.9 % of total Hgb <5.7 MICROALBUMIN/CREATININE RATIO, URINE - 0 12/13/18 08:28 CREATININE, RANDOM URINE 38 mg/dL 20-32 0 MICROALBUMIN 0.4 mg/dL See Note: MICROALBUMIN/CREATININE RATIO, RANDOM URINE 11 mcg /mg creat <30 A1C - 03/04/19 08:00 HEMOGLOBIN A1c 6.9 % of total Hgb <5.7 MICROALBUMIN/CREATININE RATIO, URINE - 0 07/08/19 07:05 CREATININE, RANDOM URINE 29 mg/dL 20-32 0 MICROALBUMIN 0.3 mg/dL See Note: MICROALBUMIN/CREATININE RATIO, RANDOM URINE 10 mcg /mg creat <30 LITHIUM (ESKALITH(R)), SERUM - 07/17/19 08:40 LITHIUM 0.4 mmol/L 0.6-1.2 HEPATITIS PROFILE - 09/24/19 10:20 HEPATITIS A IGM NON-REACTIVE NON-REACTI VE HEPATITIS B SURFACE ANTIGEN NON-REACTIVE NON-REACTIVE HEPATITIS B CORE ANTIBODY (IGM) NON-REACTIVE NON-REACTIVE HEPATITIS C ANTIBODY NON-REACTIVE NON-R EACTIVE SIGNAL TO CUT-OFF 0.04 <1.00 HIV ANTIGEN/ANTIBODY - 09/24/19 10:20 HIV AG/AB, 4TH GEN NON-REACTIVE NON-CAL CTIVE Encounters ACCT No. Visit Date/Time Discharge Status Pt. Type Provider Facility Loc./Unit Complaint [id number] 09/15/2019 16:54:01 [facility] Unknown [id number] 09/24/2019 09:30:00 09/24/2019 23:59:5 9 [facility] Outpatient [facility] [id number] 09/24/2019 09:30:00 Document Registration [id number] 07/17/2019 08:40:00 Document Registration [id number] 07/08/2019 07:00:00 Document Registration [id number] 03/04/2019 07:45:00 Document Registration [id number] 12/13/2018 07:00:00 Document Registration [id number] 11/26/2018 08:40:00 Document Registration [id number] 09/19/2018 17:45:00 Document Registration [id number] 08/23/2018 08:30:00 Document Registration
--- OUTSIDE RECORDS SUMMARY | 2019-10-16 14:34 | XMS REPORT ---
Author Author Tenzin PAINTING Organization [facility] Address [address] [place] [address] Phone Unavailable Care Team Providers Care Long Haul Truck Driver Name Role Phone CHANDU PAINTING Unavailable Unavailable PROBLEMS Type Condition ICD9-CM Code GIC19-VV Code Onset Dates Condition S tatus SNOMED Code Problem Encounter for dental examination Z01.20 Active [id number] Assessment Encounter for dental examina tion and cleaning without abnormal findings Z01.20 Dec, Active [id number] ALLERGIES Substance Reaction Event Type Date Status N.K.D.A. Unknown Non Drug Allergy Dec, Unknown SOCIAL HISTORY No smoking Hx information available PLAN OF CARE VITAL SIGNS MEDICATIONS Unknown Medications RESULTS No Results PROCEDURES Procedure Date Ordered Related Diagnosis Body Site PROPHYLAXIS - ADULT Dec 14, 2015 TOPICAL FLUORIDE VARNISH Dec 14, 2015 IMMUNIZATIONS No Known Immunizations
--- OUTSIDE RECORDS SUMMARY | 2019-10-16 14:34 | XMS REPORT ---
Author Author Tenzin JIANG Organization [facility] [place] Address [address] [place] [address] Care Team Providers Care Street Railway Line Installer Name Role Phone FRANCA JIANG Unavailable PROBLEMS Unknown Problems ALLERGIES No Known Allergies ENCOUNTERS Encounter Location Date Diagnosis [facility] [address] [id number] [address] [place] [id number] Aug, [facility] [address] [id number] [phone] Aug, [facility] [address] [id number] [address] [place] [phone] Jul, Dental caries K02.9 and [place] al examination Z01.20 [facility] [address] [id number] [address] [place] [phone] May, Encounter for dental exam an d cleaning w/o abnormal findings Z01.20 [facility] [address] [id number] [address] [place] [phone] May, Dental examination Z01.20 [facility] [address] [id number] [address] [place] [phone] Mar, Encounter for dental exam an d cleaning w/o abnormal findings Z01.20 [facility] [place] [address] [id number] [place] [phone] Mar, Dental examination Z01.20 [facility] [address] [id number] [address] [place] [id number] Dec, Encounter for dental examina tion and cleaning with abnormal findings Z01.21 [facility] [address] [id number] [address] [place] [id number] Aug, Encounter for dental examina tion and cleaning without abnormal findings Z01.[address] [facility] [address] [id number] [phone] Aug, Dental examination Z01.20 [facility] [address] [id number] [address] [place] [id number] Apr, Encounter for dental examina tion and cleaning without abnormal findings Z01.[address] [id number] [phone] Apr, Dental examination Z01.20 [facility] [address] [id number] [address] [place] [id number] Dec, Encounter for dental examina tion and cleaning without abnormal findings Z01.[address] [id number] [phone] Oct, [facility] Z01.20 [facility] [address] [id number] [phone] Aug, [facility] for dental examination Z01.20 [facility] [address] [id number] [phone] July, Dental examination Z01.20 [facility] [address] [id number] [address] [place] [phone] July, Encounter for dental examina tion and cleaning without abnormal findings Z01.20 [facility] [address] [id number] [address] [place] [id number] July, Dental examination Z01.20 [facility] [address] [id number] [address] [place] [id number] May, Dental examination Z01.20 [facility] [address] [id number] [address] [place] [address] [id number] Apr, Encounter for dental examina tion Z01.20 [facility] [address] [id number] [address] [place] [address] [id number] Jan, Dental examination Z01.20 [facility] [address] [id number] [address] [place] [id number] Dec, Dental examination V72.2 [facility] [address] [id number] [address] [place] [phone] July, Dental examination V72.2 IMMUNIZATIONS No Known Immunizations SOCIAL HISTORY Never Assessed REASON FOR VISIT PLAN OF CARE Activity Details Follow Up 3 Months Reason:Recall VITAL SIGNS MEDICATIONS Medication Instructions Dosage Frequency Start Date End Date Duration S tatus Abilify 5 MG Orally Once a day 1 tablet 24h Active Loratadine 10 MG Orally Once a day 10 ml 24h Active Ventolin HFA 90 MCG/ACT Inhalation every 4 hrs 2 puffs as needed 4h Active Ocuvite Active Docusate Sodium-Casanthranol 100-30 MG Active Losartan Potassium 100 MG Orally Once a day 1 tablet 24h Active BusPIRone HCl 5 MG Orally Three times a day 1 tablet 8h Active Acetaminophen 80 MG/ML A ctive Docusate Sodium 50 MG Orally Once a day 1 capsule as needed 24h Active Fluticasone Propionate 50 MCG/ACT Nasally Once a day 1 spray in each nostril 24h Active Amlodipine Besylate 5 MG Orally Once a day 1 tablet 24h Active Metformin HCl 1000 MG Orally Twice a day 1 tablet with meals 12h Active Olanzapine 10 MG Orally Once a day 1 tablet 24h Active Metoprolol Succinate 50 MG Active nexium 1 tab Active Furosemide 10 MG/ML Orally Twice a day 1 ml 12h Active Miconazole 50 MG Bucally Once a day 1 tablet 24h Active Almacone 200-200-20 MG/5ML Orally Four times a day 10 ml as needed 6h Active Combivent 18-103 MCG/ACT Inhalation Four times a day 2 puffs 6h Active Albuterol Sulfate (2.5 MG/3ML) 0.083% Inhalation Three times a day 3 m l 8h Active Therems Orally Once a day 1 tablet 24h Activ e Milk of Magnesia 7.75 % Orally Four times a day 5 ml as needed 6h Active PreviDent 1.1 % Active Nateglinide 60 MG Orally Three times a day 1 tablet before meals 8h Active [place] Carbonate 300 MG Orally Three times a day 1 capsule 8h Active Quetiapine Fumarate 50 MG Orally Once a day 1 tablet at bedtime 24h Active Ibuprofen 200 MG Orally every 6 hrs 1 capsule as needed 6h Active RESULTS No Results PROCEDURES Procedure Date Ordered Result Body Site PERIODIC ORAL EXAMINATION Mar 21, 2017 BITEWINGS - THREE FILMS Mar 21, 2017 INSTRUCTIONS MEDICATIONS ADMINISTERED No Known Medications MEDICAL (GENERAL) HISTORY Type Description Date Medical History High BP Medical History Diabetes Medical History Asthma Medical History Mild intellect disability Medical History Schizophrenia Medical History Pedal Edema
--- OUTSIDE RECORDS SUMMARY | 2019-10-16 14:34 | XMS REPORT ---
Author Author Tenzin ORTEGA [facility] eClinicalWorks Address Unknown Phone Unavailable Care Team Providers Care Room Attendant Name Role Phone NATALIA ORTEGA CP Unavailable Allergies, Adverse Reactions, Alerts Substance Reaction Event Type N.K.D.A. Info Not Available Non Drug Allergy Problems Problem Type Condition Code Onset Dates Condition Statu s Assessment Dental examination Z01.20 Active Medications Medication Code System Code Instructions Start Date End Date Status Dosage Docusate Sodium-Casanthranol NDC 0 100-30 MG Orally not defined Therems [facility] [address]-13 Orally Once a day 1 tablet Combivent [facility] [address]-67 18-103 MCG/ACT Inhalation Four times a d ay 2 puffs Almacone [facility] [address]-45 200-200-20 MG/5ML Orally Four times a day 10 ml as needed Amlodipine Besylate [facility] [address]-12 5 MG Orally Once a day 1 tablet Albuterol Sulfate [facility] [address]-88 (2.5 MG/3ML) 0 .083% Inhalation Three times a day 3 ml Metoprolol Succinate NDC 0 50 MG Orally not defined Ventolin HFA [facility] [address]-80 90 MCG/ACT Inhalation every 4 hrs 2 puffs as needed Loratadine [facility] [address]-69 10 MG Orally Once a day 10 ml Acetaminophen [facility] 28961-06900 80 MG/ML Orally not defined Docusate Sodium [facility] [address]-65 50 MG Orally Once a day 1 capsule as needed BusPIRone HCl [facility] [address]-68 5 MG Orally Three times a day 1 tablet nexium NDC 0 Oral 1 tab Nateglinide [facility] [address]-52 60 MG Orally Three times a day 1 tablet before meals PreviDent [facility] [address]-17 1.1 % Dental no t defined Metformin HCl [facility] [address]-40 1000 MG Orally Twice a day 1 tablet with meals Losartan Potassium NDC [address]-04 100 MG Orally Once a day 1 tablet Quetiapine Fumarate [facility] [address]-02 50 MG Orally Once a day 1 tablet at bedtime Olanzapine [facility] [address]-25 10 MG Orally Once a day 1 tablet Abilify [facility] [address]-75 5 MG Orally Once a day 1 tablet Ibuprofen [facility] [address]-16 200 MG Orally every 6 hrs 1 capsule as needed Ocuvite [facility] [address]-98 Orally not defin ed Furosemide [facility] [address]-64 10 MG/ML Orally Twice a day 1 ml Milk of Magnesia [facility] [address]-29 7.75 % Orally Four times a day 5 ml as needed Miconazole [facility] [address]-77 50 MG Bucally Once a day 1 tablet Fluticasone Propionate [facility] [address]-63 50 MCG/ACT Nasally Once a d ay 1 spray in each nostril Procedures Procedure Coding System Code Date AMALGAM-TWO SURFACES PRIMARY/PERM CPT-4 D2150 2015 Vital Signs Date/Time: Mar 01, 2015 Blood Pressure Diastolic 83 mmHg Blood Pressure Systolic 117 mmHg Results No Known Results Summary Purpose eClinicalWorks Submission
== END 2019-10-16 13:43 | disposition home or self-care (01) ==
LOC: EDUNIT# 13:11 → ER FS 13:13
DX: H00.14 Chalazion left upper eyelid (principal); F17.210 Nicotine dependence, cigarettes, uncomplicated; F17.290 Nicotine dependence, other tobacco product, uncomplicated
CPT/HCPCS: 99282

== ENCOUNTER 2021-08-03 19:31 | Outpatient (CLI) | payer MEDICARE, MEDICAID ==
[~2021-08-03 19:31] MED LIST: POLY10DR OP
== END 2021-08-04 06:00 | disposition home or self-care (01) ==
LOC: SLEEP 19:31
PROVIDERS: ATTEND Family Medicine
DX: G47.33 Obstructive sleep apnea (adult) (pediatric) (principal)
CPT/HCPCS: 95811

== ENCOUNTER 2022-11-15 05:43 | Outpatient (CLI) | payer MEDICARE, MEDICAID ==
[~2022-11-15] VITALS: Ht 165.1 cm; Wt 93.1 kg
[2022-11-21] MEDS ORDERED: AMLO-250 PO (15:22)
[2022-11-21] MEDS ORDERED: METO50TA7 PO (15:22)
[2022-11-21] MEDS ORDERED: LUTE1CAP5 PO (15:22)
[2022-11-21] MEDS ORDERED: MULT400T12 PO (15:22)
[2022-11-21] MEDS ORDERED: GUAI5LIQ14 PO (15:22)
[2022-11-21] MEDS ORDERED: ARIP20TA20 PO (15:22)
[2022-11-21] MEDS ORDERED: MOM10U PO (15:22)
[2022-11-21] MEDS ORDERED: LORA10TA7 PO (15:22)
[2022-11-21] MEDS ORDERED: PANT40TA52 PO (15:22)
[2022-11-21] MEDS ORDERED: TR1O15 TP (15:22)
[2022-11-21] MEDS ORDERED: LITH300T3 PO (15:22)
[2022-11-21] MEDS ORDERED: RT-ALBUINH INH (15:22)
[2022-11-21] MEDS ORDERED: FURO20TA4 PO (15:22)
[2022-11-21] MEDS ORDERED: ACET-2041 PO (15:22)
[2022-11-21] MEDS ORDERED: OLAN10TA71 PO (15:22)
[2022-11-21] MEDS ORDERED: BUSP10TA95 PO (15:22)
[2022-11-21] MEDS ORDERED: FLUT15.845 NS (15:22)
[2022-11-21] MEDS ORDERED: IBUP-1773 PO (15:22)
[2022-11-21] MEDS ORDERED: POTA10TA17 PO (15:22)
[2022-11-21] MEDS ORDERED: MAG-86 PO (15:22)
[2022-11-21] MEDS ORDERED: INSU3INS2 SQ (15:22)
[2022-11-21] MEDS ORDERED: LOSA100T58 PO (15:22)
[2022-11-21] MEDS ORDERED: QUET50TA23 PO (15:22)
[2022-11-21] MEDS ORDERED: METF-399 PO (15:22)
[2022-11-21] MEDS ORDERED: [UNRECOGNIZED DRUG - CODE] OT (15:22)
[2022-11-21] MEDS ORDERED: DOCU100C37 PO (15:22)
[2022-11-21] MEDS ORDERED: MONT-40 PO (15:22)
== END 2022-11-21 15:24 | disposition home or self-care (01) ==
LOC: PREOP 05:43
PROVIDERS: ATTEND Surgery
DX: Z01.818 Encounter for other preprocedural examination (principal)

== ENCOUNTER 2022-11-27 06:52 | Day surgery (SDC) | payer MEDICARE, MEDICAID ==
[~2022-11-27] VITALS: Ht 165.1 cm; Wt 93.1 kg
[~2022-11-27 06:52] MED LIST changes: +ACET-2041 PO; +AMLO-250 PO; +ARIP20TA20 PO; +BUSP10TA95 PO; +DOCU100C37 PO; +FLUT15.845 NS; +FURO20TA4 PO; +GUAI5LIQ14 PO; +IBUP-1773 PO; +INSU3INS2 SQ; +LITH300T3 PO; +LORA10TA7 PO; +LOSA100T58 PO; +LUTE1CAP5 PO; +MAG-86 PO; +METF-399 PO; +METO50TA7 PO; +MOM10U PO; +MONT-40 PO; +MULT400T12 PO; +OLAN10TA71 PO; +PANT40TA52 PO; +POTA10TA17 PO; +QUET50TA23 PO; +RT-ALBUINH INH; +TR1O15 TP; +[UNRECOGNIZED DRUG - CODE] OT
[2022-11-27] MEDS ORDERED: LACTATED RINGERS 1,000 ML 1,000 ML IV STA (07:05)
[2022-11-27 07:35] VITALS: BP 147/78
--- NOTE | 2022-11-27 08:29 | Progress Note-Pre Operative ---
Pre-Operative Progress Note Date of Available H&P: Nov 07, 2022 Date H&P Reviewed: Nov 27, 2022 Time H&P Reviewed: 08:24 History & Physical: H&P Reviewed, Patient Examed, No changes noted Pre-Operative Diagnosis: BONNIE Tucker DO Nov 27, 2022 08:29
--- NOTE | 2022-11-27 09:43 | Progress Note-Post Operative ---
Post-Operative Progess Note Surgeon (s)/Japanese Tutor (s) Surgeon BONINE LOVING DO Japanese Tutor: CRISTÓBAL Saenz Pre-Operative Diagnosis screening Post-Operative Diagnosis Polyp diverticula int hemorrhoids Procedure & Operative Findings Date of Procedure 11/27/22 Procedure Performed/Findings Colonoscopy with snare polypectomy PROCEDURE NOTE: After informed consent was obtained, the patient was brought to the endoscopy suite, placed in bed in left lateral decubitus position. He was administered IV sedation by the NEEDLE VALVE OPERATOR who then monitored his vitals the entire time, heart rate, blood pressure and pulse ox and the scope was inserted, pushed all the way to about 150 cm and pushed into the cecum, took a picture of appendiceal orifice and noted the ileocecal valve. On the way in found a polyp in the ascending colon and removed it with snare polypectomy. I also saw diverticula throughout the entire colon and took some pictures. Then slowly withdrew the scope insufflating to look c ircumferentially at the funk starting in the cecum, up the ascending colon to the hepatic flexure, then down the transverse colon, splenic flexure, into the descending colon down in the sigmoid and then into the rectal vault and retroflexed the scope. Took a picture of the internal hemorrhoids. The patient tolerated the procedure. He was recovered in endoscopy suite. Recommended for repeat colonoscopy in 5 years. Anesthesia Type IV sedation by NEEDLE VALVE OPERATOR Estimated Blood Loss Estimated blood loss (mL): scant Specimens/Packing Specimens Removed Asc colon polyp BONNIE LOVING DO Nov 27, 2022 09:43
--- NOTE | 2022-11-27 09:44 | Endoscopy Discharge Instruct ---
Endo Procedure/Findings Findings 1.: Polyp 2.: Diverticulosis 3.: Internal Hemorrhoids Discharge Instructions - Activity: You might feel a little sleepy until tomorrow. This is due to the medicine you received to relax you. Until tomorrow, you should: NOT drive a car, operate machinery or power tools. NOT drink any alcoholic beverages. NOT make any important decisions or sign importortant papers. Do not return to work until tomorrow, unless otherwise instructed. Resume previous activities tomorrow. Diet: Start by taking liquids. If you tolerate liquids, advance to solid food. 1.: Colonscopy in 5 years Notify Physician - If you experience excessive bleeding, unusual abdominal pain, fever, or chest pain, contact your doctor immediately. Follow-Up: Other Follow up in one week, in my clinic BONNIE LOVING DO Nov 27, 2022 09:44
--- NOTE | 2022-11-27 09:44 | Anesthesia-General Post-Op ---
MAC Patient Condition Mental Status/LOC: Same as Preop Cardiovascular: Satisfactory Nausea/Vomiting: Absent Respiratory: Satisfactory Pain: Controlled Complications: Absent Post Op Complications Complications None Follow Up Care/Instructions Patient Instructions None needed. Anesthesiology Discharge Order Discharge Order Patient is doing well, no complaints, stable vital signs, no apparent adverse anesthesia problems. No complications reported per nursing. KATHERINE WALLER CRNA Nov 27, 2022 09:44
[2022-11-27 09:45] VITALS: BP 90/45
[2022-11-27 09:49] VITALS: BP 95/51
[2022-11-27 09:55] VITALS: BP 95/51
[2022-11-27 10:10] VITALS: BP 136/69
[2022-11-27 10:17] VITALS: BP 136/69
== END 2022-11-27 10:17 | disposition home or self-care (01) ==
LOC: ENDO 06:52
PROVIDERS: ATTEND Surgery
DX: Z12.11 Encounter for screening for malignant neoplasm of colon (principal); D12.2 Benign neoplasm of ascending colon; K57.30 Diverticulosis of large intestine without perforation or abscess without bleeding; K64.8 Other hemorrhoids; E11.9 Type 2 diabetes mellitus without complications; E66.9 Obesity, unspecified; Z79.84 Long term (current) use of oral hypoglycemic drugs; Z68.34 Body mass index [BMI] 34.0-34.9, adult
CPT/HCPCS: 88305